=== PATIENT | female | born 1970 | race American Indian/Alaskan Native ===

== ENCOUNTER 2016-09-30 07:42 | Day surgery (SDC) | payer MEDICARE ==
[~2016-09-30 07:42] MED LIST: ANCEF/STERILE WATER 2 GM/20 ML 20 ML IV NR; NACL 0.9% 1000 ML 1,000 ML IV SCH
[2016-09-30 09:09] LABS: Hematocrit 28.7 % (30.3-42.9); Hemoglobin 8.7 gm/dl (10.1-14.3); Mean Corpuscular HGB Conc 30 % (30-34); Mean Corpuscular Volume 74 fl (79-97); Platelet Count 288 K/mm3 (140-440); Red Blood Count 3.88 M/mm3 (3.65-5.03); Red Cell Distribution Width 19.5 % (13.2-15.2)
[2016-09-30] MEDS ORDERED: VERSED IV PRN (09:09)
[2016-09-30 09:15] LABS: Mean Corpuscular Hemoglobin 22 pg (28-32)
--- NOTE | 2016-09-30 09:18 | Anesthesia Consultation ---
Anesthesia Consult and Med Hx Date of service: 09/30/16 - Airway Anesthetic Teeth Evaluation: Poor ROM Head & Neck: Adequate Mental/Hyoid Distance: Adequate Mallampati Class: Class II Intubation Access Assessment: Probably Good - Pulmonary Exam CTA: Yes - Cardiac Exam Cardiac Exam: RRR - Pre-Operative Health Status ASA Pre-Surgery Classification: ASA3 Proposed Anesthetic Plan: General - Pulmonary Hx Smoking: Yes (4 cigs/day) - Cardiovascular System Hx Hypertension: Yes (10YRS) Hx Cardia Arrhythmia: No - Central Nervous System Hx Seizures: Yes (12 yrs ago, not on meds) CVA: No - Endocrine Hx Renal Disease: Yes Hx End Stage Renal Disease: Yes (Dialysis 5 days a week, last dialyzed on Thursday ) Hx Insulin Dependent Diabetes: No Hx Non-Insulin Dependent Diabetes: No Hx Hypothyroidism: (Parathyroid gland removed) - Hematic Hx Anemia: Yes Hx Sickle Cell Disease: No - Other Systems Hx Cancer: No Hx Obesity: No - Additional Comments Anesthesia Medical History Comments: Pt denies of previous anesthesia complications
--- NOTE | 2016-09-30 09:18 | Anesthesia Day of Surgery ---
Anesthesia Day of Surgery - Day of Surgery Patient Examined: Yes Patient H&P Reviewed: Yes Patient is NPO: Yes
[2016-09-30 09:20] LABS: BUN/Creatinine Ratio 4.95; Calcium 7.6 mg/dL (8.4-10.2); Chloride 94.7 mmol/L (98-107); INR 1.21 (0.87-1.13); Potassium 4.5 mmol/L (3.6-5.0)
[2016-09-30] MEDS ORDERED: SUBLIMAZE ONE (09:20)
[2016-09-30] MEDS ORDERED: DIPRIVAN 10 MG/ML IV ONE (09:20)
[2016-09-30] MEDS ORDERED: ePHEDrine SULFATE ONE (09:43)
[2016-09-30 09:53] LABS: Anisocytosis 1+; Basophils % (Manual) 0 % (0.0-1.8); Blastocytes % (Manual) 0 %; Hypochromasia 1+; Polychromasia 1+
[2016-09-30 09:54] LABS: Diff Status Complete; Ovalocytes 1+
[2016-09-30] MEDS ORDERED: ANCEF/STERILE WATER 2 GM/20 ML IV NR (10:00)
[2016-09-30] MEDS ORDERED: PEPCID PO NR (10:00)
[2016-09-30] MEDS ORDERED: NEO SYNEPHRINE/NS Syringe(OR USE) IV ONE (10:04)
[2016-09-30] MEDS ORDERED: NACL 0.9% 1000 ML IV ONE (10:04)
[2016-09-30] MEDS ORDERED: HEPARIN 10,000 UNITS/10 ML IV ONE (10:04)
[2016-09-30] MEDS ORDERED: XYLOCAINE MPF 2% ONE (10:08)
[2016-09-30] MEDS ORDERED: HEPARIN 10,000 UNITS/10 ML ONE (10:26)
[2016-09-30] MEDS ORDERED: NEO SYNEPHRINE ONE (10:52)
[2016-09-30] MEDS ORDERED: NACL 0.9% 100 ML ONE (10:52)
[2016-09-30] MEDS ORDERED: ZOFRAN ONE (11:02)
[2016-09-30] MEDS ORDERED: MARCAINE 0.5% INFILTRATI ONE (11:10)
--- NOTE | 2016-09-30 11:39 | Short Stay Summary ---
Short Stay Documentation Date of service: 09/30/16 Narrative H&P: See H&P - History H&P: obtained from office - Allergies and Medications Current Medications: Allergies No Known Allergies Allergy (Verified 08/23/15 07:25) Home Medications Medication Instructions Recorded Confirmed Last Taken Type Sevelamer Carbonate [Renvela] 800 mg PO TIDWM #90 tablet 07/10/14 09/30/1609/30 Rx Calcitriol [Rocaltrol] 0.5 mcg PO QID 09/29/16 09/30/16 09/28/16 History Vitamin B Comp and C/FA/Zn Cit 0.8 mg PO QDAY 09/29/16 09/30/16 09/28/16 History [Dialyvite 800-Zinc 15 Tab] Warfarin [Coumadin] 5 mg PO Q48HR 09/29/16 09/30/16 09/29/16 23:30 History Warfarin [Coumadin] 7.5 mg PO Q48HR 09/29/16 09/30/16 09/28/16 History buPROPion SR [Wellbutrin SR] 100 mg PO BID 09/29/16 09/30/16 09/30/16 05:50 History cloNIDine [Catapres] 0.1 mg PO BID 09/29/16 09/30/16 09/30/16 05:50 History Active Medications Cefazolin Sodium (Ancef/Sterile Water 2 Gm/20 Ml) 2 gm IV PREOP NR Stop: 09/30/16 23:59 Famotidine (Pepcid) 20 mg PO PREOP NR Stop: 09/30/16 23:59 Last Admin: 09/30/16 09:20 Dose: 20 mg Sodium Chloride (Nacl 0.9% 1000 Ml) 1,000 mls @ 42 mls/hr IV DIRECT HARDEEP Last Admin: 09/30/16 09:15 Dose: 42 mls/hr Midazolam HCl (Versed) 1 mg IV PREOP PRN PRN Reason: Anesthesia Stop: 09/30/16 23:59 Last Admin: 09/30/16 09:20 Dose: 1 mg - Brief post op/procedure progress note Date of procedure: 09/30/16 Pre-op diagnosis: complications of dialysis access Post-op diagnosis: same Procedure: Creation of Left Thigh AV Loop Graft using 4-7 AccuSeal Step Graft Anesthesia: GETA Surgeon: HERI PRITCHARD Estimated blood loss: minimal Pathology: none Condition: stable - Disposition Condition at discharge: Good Disposition: DISCHARGED TO HOME OR SELFCARE Short Stay Discharge Plan Activity: other (no strenuous activity until follow-up in office) Wound: open to air, keep clean and dry, other (okay to wash the wound with soap and water but do not soak in water) Follow up with: HERI PRITCHARD MD [Staff Physician] - 14 Days Prescriptions: HYDROcodone/APAP 7.5-325 [[place] 7.5/325] 1 each PO Q6HR PRN #60 tablet PRN Reason: Pain
[2016-09-30] MEDS: DILAUDID IV PRN ×2 (12:00→12:12)
[2016-09-30 12:45] VITALS: BP 124/71
--- NOTE | 2016-09-30 17:11 | Operative Report ---
Operative Report Operative Report: Date of Procedure: 09/30/2016 Pre-operative Diagnosis: Complications of dialysis access Post-operative Diagnosis: Same Procedure(s): 1. Creation of Left Thigh AV Loop Graft using 4-7 AccuSeal Step Graft Surgeon: Noble Erazo M.D. Director Of Strategic Communications: Ezio Anesthesia: Gen. endotracheal anesthesia EBL: Minimal Counts: Correct Complications: None Condition: Stable Findings: Successful creation of left thigh graft with excellent thrill at the completion of the case Specimen: None Indication: The patient is a 46-year-old female with a history of end-stage renal disease who is currently on hemodialysis through a left arm AV fistula. The patient performs self cannulation at home and currently has central venous stenosis that requires frequent ballooning. Over the last several months she has required treatment 1-2 times per month. It is felt that it is time to abandon this access in her right upper extremity is not an option since the patient is right-handed and cannulates herself. It was felt that she would benefit from creation of a left thigh AV graft. She was given the risks, benefits, and alternative procedures and consented to procedure. Description of Procedure: The patient was brought to the operating room and laid in supine position. After general endotracheal anesthesia was achieved for left leg was prepped and draped in fashion. A longitudinal incision was created in the groin and carried down to the femoral vein with our dissection. The vein was dissected circumferentially and then controlled the vessel. I then dissected out the common femoral artery as well as SFA and the profunda femoris artery was dissected distally to the bifurcation. The common femoral as well as SFA and each branch of the profunda artery controlled with vessels. I then used the Alessandra with tunneler to tunnel the graft with a counter incision in the distal thigh and the 4 mm end of the graft tunneled laterally with a 7 mm tunneled medially. I systemically heparinized the patient and then clamped the arteries and included created end-to-side anastomosis between the 4 mm end of the graft and the profunda artery using 6-0 Prolene in a running fashion. After creating the anastomosis and released all clamps allowing flow into the graft which had excellent arterial inflow. I reclamped the graft and cut the graft to length and beveled the distal end and uses Satinsky clamp to control the vein. I created a venotomy using an 11 blade and Robles scissors and then created an end- to-side anastomosis using a 6-0 Prolene running fashion. After completing the anastomosis and released all clamps allow full the graft with an excellent thrill. Hemostasis within the osullivan achieved with the clot. Once hemostasis was achieved the wounds were anesthetized with Marcaine and then the diagonal was closed in 3 layers using 3-0 Vicryl running fashion the deep layer, 3-0 Vicryl running fashion and deep dermal layers, and a 4 Monocryl in a running fashion subcuticular layer and then dressed with Dermabond.. The distal thigh wound was closed in 2 layers using a 3-0 Vicryl running fashion the dermal layer and a 4-0 Monocryl in running fashion subcuticular and then dressed with Dermabond. The patient tolerated the procedure well. All sponge, needle, and instrument counts were correct. The patient was taken to the recovery area in stable condition.
== END 2016-09-30 13:18 | disposition home or self-care (01) ==
LOC: OR 07:42
PROVIDERS: ATTEND Surgery Vascular Surgery
DX: I12.0 Hypertensive chronic kidney disease with stage 5 chronic kidney disease or end stage renal disease (principal); N18.6 End stage renal disease; Z99.2 Dependence on renal dialysis; H40.9 Unspecified glaucoma; F17.210 Nicotine dependence, cigarettes, uncomplicated; D64.9 Anemia, unspecified; Z86.718 Personal history of other venous thrombosis and embolism; Z98.890 Other specified postprocedural states; T82.898A Other specified complication of vascular prosthetic devices, implants and grafts, initial encounter; Y83.2 Surgical operation with anastomosis, bypass or graft as the cause of abnormal reaction of the patient, or of later complication, without mention of misadventure at the time of the procedure
CPT/HCPCS: 36415; 36825; 80048; 85007; 85025; 85610; J0690; J1644; J2250; J2370; J2405; J2704; J3010; J7030; C1768

== ENCOUNTER 2018-09-17 08:19 | Day surgery (SDC) | payer MEDICARE ==
[~2018-09-17 08:19] MED LIST changes: +ANCEF/STERILE WATER 2 GM/20 ML 2 GM/20 ML SYRINGE IV NR; -ANCEF/STERILE WATER 2 GM/20 ML 20 ML IV NR
[2018-09-17] MEDS ORDERED: NACL 0.9% 500 ML 500 ML ONE (08:34)
[2018-09-17] MEDS ORDERED: PROTAMINE SULFATE ONE (08:34)
[2018-09-17] MEDS ORDERED: HEPARIN 10,000 UNITS/10 ML ONE ×2 (08:34→11:01)
[2018-09-17] MEDS ORDERED: MARCAINE 0.5% INFILTRATI ONE ×2 (08:34→11:00)
--- NOTE | 2018-09-17 09:33 | Anesthesia Day of Surgery ---
Anesthesia Day of Surgery - Day of Surgery Patient Examined: Yes Patient H&P Reviewed: Yes Patient is NPO: Yes Beta Blockers: No Cardiac Clearance: No Pulmonary Clearance: No
--- NOTE | 2018-09-17 09:40 | Anesthesia Consultation ---
Anesthesia Consult and Med Hx Date of service: 09/17/18 - Airway Anesthetic Teeth Evaluation: Good ROM Head & Neck: Adequate Mental/Hyoid Distance: Adequate Mallampati Class: Class III Intubation Access Assessment: Possibly Difficult - Pulmonary Exam CTA: Yes - Cardiac Exam Cardiac Exam: No Murmur - Pre-Operative Health Status ASA Pre-Surgery Classification: ASA4 Proposed Anesthetic Plan: General - Pulmonary Hx Smoking: Yes Hx Asthma: No COPD: No Hx Pneumonia: No Hx Sleep Apnea: No - Cardiovascular System Hx Hypertension: Yes (since 18 yr old) Hx Coronary Artery Disease: No Hx Heart Attack/AMI: No Hx Angina: No Hx Percutaneous Transluminal Coronary Angioplasty (PTCA): No Hx Cardia Arrhythmia: No Hx Pacemaker: No Hx Internal Defibrillator: No Hx Valvular Heart Disease: No Hx Heart Murmur: No Hx Peripheral Vascular Disease: No - Central Nervous System Hx Seizures: Yes (Last sz 12 yrs ago) CVA: No Hx Psychiatric Problems: Yes - Endocrine Hx Renal Disease: Yes Hx End Stage Renal Disease: Yes Hx Insulin Dependent Diabetes: No Hx Non-Insulin Dependent Diabetes: No Hx Hypothyroidism: (Parathyroid gland removed) - Hematic Hx Anemia: Yes Hx Sickle Cell Disease: No - Other Systems Hx Alcohol Use: Yes (Occas) Hx Cancer: No Hx Obesity: No
[2018-09-17] MEDS ORDERED: ZOFRAN ONE (09:47)
[2018-09-17] MEDS ORDERED: SUBLIMAZE ONE (09:47)
[2018-09-17] MEDS ORDERED: DECADRON ONE (09:47)
[2018-09-17] MEDS ORDERED: DIPRIVAN 10 MG/ML IV ONE (09:47)
[2018-09-17 10:02] LABS: Hematocrit 31.9 % (30.3-42.9); Hemoglobin 10.1 gm/dl (10.1-14.3); Mean Corpuscular HGB Conc 32 % (30-34); Mean Corpuscular Volume 69 fl (79-97); Platelet Count 249 K/mm3 (140-440); Red Cell Distribution Width 22.3 % (13.2-15.2)
[2018-09-17 10:11] LABS: Calcium 7.7 mg/dL (8.4-10.2)
[2018-09-17] MEDS ORDERED: XYLOCAINE CARDIAC IV ONE (10:49)
[2018-09-17] MEDS ORDERED: NACL 0.9% IR ONE (11:00)
[2018-09-17] MEDS ORDERED: HEPARIN 10,000 UNITS/10 ML IV ONE ×2 (11:00)
[2018-09-17 11:08] LABS: Anisocytosis 2+; Basophils % (Manual) 0 % (0.0-1.8); Total Cells Counted 100
[2018-09-17 11:09] LABS: Hypochromasia 2+; Ovalocytes 1+; Platelet Estimate Consistent w Auto; Poikilocytosis 1+; Target Cells Few; Tear Drop Cells Rare
--- NOTE | 2018-09-17 14:29 | Operative Report ---
Operative Report Operative Report: Operative note: Date: 09/17/2018 Preoperative diagnosis: Endstage renal disease on hemodialysis. Multiple previous failed accesses. Postoperative diagnosis: Same. Operation: Right arm AV graft creation with ProCol 6mm graft Surgeon: Betsey Ocampo. Asst.: none Anesthesia: Gen. EBL: Less than 50 mL Findings: At the end of procedure there was a palpable thrill at the right arm AV graft and palpable radial pulse. Indications: 48-year-old lady on hemodialysis at home via self cannulation technique. She has had multiple AV fistulas and AV grafts that had failed. Last with left thigh AV graft that recently thrombosed and had undergone unsuccessful declot. She is using right femoral PermCath at this point. It felt reasonable to suggest right arm AV graft creation. The patient was discussed risks, benefits and alternatives of procedure and chose to proceed, signed informed consent. Operative details: Patient was brought to the operating room and placed in supine position with right arm on an arm table. Ultrasound was performed locating brachial artery as well as axillary vein. Those locations were marked on the skin. Right arm was then prepped and draped in sterile fashion. Timeout was performed and all team members in agreement. First incision was created with 15 blade over medial side of elbow crease in vertical fashion and carried down with electrocautery. Brachial artery was dissected and taken distally and proximally on vessel loops. Next, incision was created with 15 blade over medial upper part of arm in the vertical fashion and carried down with electrocautery. With further dissection axillary vein was identified medial to brachial artery, deep was in fibers of biceps. It was taken on vessel loop. 4 millimeter ProCol graft was tunneled with Alessandra Wick tunneler in a curvilinear fashion. At this moment patient was given 3000 units of heparin and allowed to circulate for 3 minutes. Proximal and distal controls were gained. arterial portion was beveled at the arterial side. Arteriotomy was created with 11 blade and extended with Robles scissors. Anastomosis was created with 6-0 Prolene in circumferential fashion. Graft was open,it was let dilate under pressure for 5min. The next step, graft was transected beveling at the planned venous anastomosis. The vein was clamped with Satinsky clamp and DeBakey clamps gaining distal and proximal controls. Venotomy was created with 11 blade and carried with Robles scissors. Circumferential anastomosis was created with 6-0 Prolene and flushed before completion. 2 repair stitches were placed. Both anastomosis were checked for hemostasis. Graft area was palpated and good thrill appreciated. Incisions were irrigated and checked for hemostasis. They were closed in layers with 3-0 Vicryl interrupted dermal and 4-0 Monocryl running subcuticular. Dermabond was applied. Good radial pulse was palpated at the end of procedure as well as graft thrill. All needles and sponge counts were correct. Patient tolerated the procedure well and was transferred to PACU in stable condition.
--- NOTE | 2018-09-17 14:35 | Short Stay Summary ---
Short Stay Documentation Date of service: 09/17/18 - History H&P: obtained from office - Allergies and Medications Current Medications: Allergies No Known Allergies Allergy (Verified 09/10/18 08:28) Home Medications Medication Instructions Recorded Confirmed Last Taken Type Sevelamer Carbonate [Renvela] 800 mg PO TIDWM #90 tablet 07/10/14 09/17/18 09/16/18 19:30 Rx Calcitriol [Rocaltrol] 0.5 mcg PO QID 09/29/16 09/17/18 09/15/18 19:30 History Vit B Complx C/Folic Acid/Zinc 0.8 mg PO QDAY 09/29/16 09/10/18 08/19/18 History [Dialyvite 800-Zinc 15 mg Tab] 0.8mg Warfarin [Coumadin] 7.5 mg PO Q48HR 09/29/16 09/17/18 09/14/18 21:00 History Calcium Acetate 667 mg PO AC 08/20/18 09/17/18 09/16/18 19:30 History amLODIPine [Norvasc] 10 mg PO QDAY #30 tablet 08/24/18 09/17/18 09/17/18 07:00 Rx Warfarin [Coumadin] 10 mg PO Q48H 09/10/18 09/17/18 09/15/18 21:00 History cloNIDine-TTS PATCH [Catapres-Tts 1 patch TRANSDERMA QWEEK 09/10/18 09/17/18 09/17/18 History Patch] Losartan Potassium 100 mg PO DAILY 09/17/18 09/17/18 09/15/18 19:30 History Active Medications Cefazolin Sodium (Ancef/Sterile Water 2 Gm/20 Ml) 2 gm in 20 mls @ 80 mls/hr IV PREOP NR; Protocol Stop: 09/17/18 23:59 Sodium Chloride (Nacl 0.9% 1000 Ml) 1,000 mls @ 42 mls/hr IV DIRECT HARDEEP Last Admin: 09/17/18 09:12 Dose: 42 mls/hr Documented by: - Brief post op/procedure progress note Date of procedure: 09/17/18 Pre-op diagnosis: ESRD, multiple previous failed accesses Post-op diagnosis: same Procedure: creation of right arm AVG with 6mm ProCol Anesthesia: GETA Findings: good thrill and radial pulse at the completion Surgeon: CARLEY GROVER Estimated blood loss: minimal Pathology: none Condition: stable - Disposition Condition at discharge: Good Disposition: DC-01 TO HOME OR SELFCARE Short Stay Discharge Plan Diet: renal Special Instructions: no heavy lifting Follow up with: BLADIMIR LAND MD [Primary Care Provider] - 7 Days CARLEY GROVER DO [Staff Physician] - 14 Days Prescriptions: HYDROcodone/ACETAMINOPHEN [[place] 5-325 Tablet] 1 each PO Q4-6H PRN #20 tablet PRN Reason: Pain , Severe (7-10)
[2018-09-17] MEDS ORDERED: NORCO 5/325 ONE (15:11)
[2018-09-17] MEDS ORDERED: NORCO 5/325 PO PRN (16:00)
[2018-09-17 17:44] VITALS: BP 144/88
== END 2018-09-17 08:20 | disposition home or self-care (01) ==
LOC: OR 08:19
PROVIDERS: ATTEND Surgery Vascular Surgery
DX: I12.0 Hypertensive chronic kidney disease with stage 5 chronic kidney disease or end stage renal disease (principal); N18.6 End stage renal disease; D64.9 Anemia, unspecified; F17.210 Nicotine dependence, cigarettes, uncomplicated; H40.89 Other specified glaucoma; E03.9 Hypothyroidism, unspecified; Z87.898 Personal history of other specified conditions; Z98.891 History of uterine scar from previous surgery; Z98.890 Other specified postprocedural states; Z72.89 Other problems related to lifestyle; Z99.2 Dependence on renal dialysis; Z86.718 Personal history of other venous thrombosis and embolism; Z79.01 Long term (current) use of anticoagulants; Z79.899 Other long term (current) drug therapy
CPT/HCPCS: 36415; 36830; 80048; 85007; 85025; C1768; J0690; J1100; J1644; J2001; J2405; J2704; J2720; J3010; J7030; J7040

== ENCOUNTER 2018-10-04 10:25 | Day surgery (SDC) | payer MEDICARE ==
[2018-10-04 12:27] LABS: INR 1.18 (0.87-1.13)
[2018-10-04 12:28] LABS: Partial Thromboplastin Time 46.2 Sec. (24.2-36.6)
[2018-10-04 13:23] LABS: Calcium 8.2 mg/dL (8.4-10.2)
[2018-10-04] MEDS ORDERED: HEPARIN/NS 5000 UNIT/500ML(CATH LAB) 500 ML IR ONE (13:44)
[2018-10-04] MEDS ORDERED: XYLOCAINE 2% INFILTRATI ONE ×2 (13:45→13:47)
[2018-10-04] MEDS ORDERED: SUBLIMAZE ONE (13:45)
[2018-10-04] MEDS ORDERED: ANCEF/STERILE WATER 2 GM/20 ML 2 GM/20 ML SYRINGE IV ONE (13:45)
[2018-10-04] MEDS ORDERED: HEPARIN 10,000 UNITS/10 ML ONE (13:46)
[2018-10-04] MEDS: VERSED ONE ×2 (13:47→14:00)
[2018-10-04] MEDS ORDERED: D50W (25GM) Syringe IV ONE (14:37)
--- NOTE | 2018-10-04 14:40 | Operative Report ---
Operative Report Operative Report: Operative note: Date: 10/04/2018 Preoperative diagnosis: Malfunctioning right femoral PermCath Postoperative diagnosis: Same. Operation: Right femoral PermCath exchange Surgeon: Betsey Ocampo. Asst.: None Anesthesia: local with moderate sedation. EBL: Minimal Findings: PermCath in good position Indications: Patient prefers hemodialysis at home and recently starting right arm AV graft access had infiltration of her right upper extremity and malfunctioning of right femoral PermCath. Since for now it is advisable to not have any graft access until the swelling and hematoma subsides and permacath was malfunctioning, patient was advised to come for right femoral PermCath exchange. She understood all risks, benefits and alternatives of procedure and signed informed consent. Operative details: Patient was brought to laborer laboratory and positioned in the supine position with right femoral PermCath prepped and draped in sterile fashion. A timeout performed and all team members in the agreement 2 Glidewires were inserted and advanced under fluoroscopic guidance through the venous and arterial ports of PermCath and advanced into proximal inferior vena cava. Exit site was infiltrated with lidocaine around the PermCath. Small incision was made just at the PermCath skin insertion point and dilated with hemostat, dissecting around cuff. Old permacath was removed and new PermCath 55 cm was advanced over 2 Glidewire and inserted through the previous orifice into the proximal IVC. Wires were removed and ports were flushed with saline and checked for good blood flow. Cath ports were locked with heparin 3.0 mL in each.
[2018-10-04] MEDS ORDERED: HumuLIN R IV ONE (14:41)
--- NOTE | 2018-10-04 14:47 | Event Note ---
Date: 10/04/18 Patient came in for right femoral PermCath exchange due to malfunctioning. She performs home dialysis, recently was accessed right AVgraft, but caused infiltration, so she had to go back the PermCath. Patient was set up to have PermCath exchange. During her blood work before procedure she was found to have potassium of 7.1. Nephrology, Dr. Barrera, was contacted and insisted on patient staying in the hospital for hemodialysis. Patient refused and preferred to have dialysis at home, "my machine is set up". She was explained risks of having hyperkalemia including possible . She understood and still wanted to leave. She will sign AMA
--- NOTE | 2018-10-04 15:54 | Short Stay Summary ---
Short Stay Documentation Date of service: 10/04/18 - History Past Medical History: dialysis, hypertension Past Surgical History: Other (multiple previous accesses) Social history: smoking - Allergies and Medications Current Medications: Allergies No Known Allergies Allergy (Verified 09/10/18 08:28) Home Medications Medication Instructions Recorded Confirmed Last Taken Type Sevelamer Carbonate [Renvela] 800 mg PO TIDWM #90 tablet 07/10/14 10/04/18 10/03/18 Rx 1 tab Calcitriol [Rocaltrol] 0.5 mcg PO QID 09/29/16 10/04/18 10/03/18 History 1 tab Warfarin [Coumadin] 7.5 mg PO Q48HR 09/29/16 10/04/18 09/29/18 History 1 tab Calcium Acetate 667 mg PO AC 08/20/18 10/04/18 10/03/18 History 1 tab amLODIPine [Norvasc] 10 mg PO QDAY #30 tablet 08/24/18 10/04/18 10/03/18 Rx 1 tab Warfarin [Coumadin] 10 mg PO Q48H 09/10/18 10/04/18 09/30/18 History 1 tab cloNIDine-TTS PATCH [Catapres-Tts 1 patch TRANSDERMA QWEEK 09/10/18 10/04/18 09/27/18 History Patch] 1 patch Losartan Potassium 100 mg PO DAILY 09/17/18 10/04/18 10/03/18 History 1 tab Epoetin Frank [Epogen] 20,000 unit SQ Q7D 10/04/18 10/04/18 09/30/18 History 20,000 unit Active Medications Cefazolin Sodium (Ancef/Sterile Water 2 Gm/20 Ml) 2 gm in 20 mls @ 80 mls/hr IV PREOP NR; Protocol Stop: 10/04/18 23:59 Sodium Chloride (Nacl 0.9% 1000 Ml) 1,000 mls @ 42 mls/hr IV DIRECT HARDEEP Last Admin: 10/04/18 12:40 Dose: 42 mls/hr Documented by: - Physical exam General appearance: no acute distress Lungs: Normal air movement Breasts: deferred Heart: Regular rate Female Genitourinary: deferred Rectal Exam: deferred - Brief post op/procedure progress note Date of procedure: 10/04/18 Pre-op diagnosis: malfunctional right femoral premcath Post-op diagnosis: same Procedure: permcath exchange Anesthesia: MAC Findings: good positioning Surgeon: CARLEY GROVER Estimated blood loss: minimal Condition: stable - Disposition Condition at discharge: Fair Disposition: DC-01 TO HOME OR SELFCARE Short Stay Discharge Plan Diet: renal Wound: keep clean and dry Additional Instructions: patient was recommended to get dialysis for hyperkalemia with K 7.1. She refused and signed AMA Follow up with: BLADIMIR LAND MD [Primary Care Provider] - 7 Days Forms: AMA Form
[2018-10-04 16:13] VITALS: BP 172/85
== END 2018-10-04 16:10 | disposition home or self-care (01) ==
LOC: CATHLABREC 10:25
PROVIDERS: ATTEND Surgery Vascular Surgery
DX: T82.49XA Other complication of vascular dialysis catheter, initial encounter (principal); I12.0 Hypertensive chronic kidney disease with stage 5 chronic kidney disease or end stage renal disease; N18.6 End stage renal disease; D64.9 Anemia, unspecified; E03.9 Hypothyroidism, unspecified; F17.210 Nicotine dependence, cigarettes, uncomplicated; Z72.89 Other problems related to lifestyle; T82.7XXA Infection and inflammatory reaction due to other cardiac and vascular devices, implants and grafts, initial encounter; Z86.2 Personal history of diseases of the blood and blood-forming organs and certain disorders involving the immune mechanism; Z98.890 Other specified postprocedural states; Z99.2 Dependence on renal dialysis; Z79.899 Other long term (current) drug therapy; Z79.01 Long term (current) use of anticoagulants; Z86.718 Personal history of other venous thrombosis and embolism; Z98.891 History of uterine scar from previous surgery; Y83.8 Other surgical procedures as the cause of abnormal reaction of the patient, or of later complication, without mention of misadventure at the time of the procedure; Y92.89 Other specified places as the place of occurrence of the external cause
CPT/HCPCS: 36415; 36581; 77001; 80048; 85610; 85730; 99156; 99157; C1750; C1769; J0690; J1644; J2250; J3010; J7030; J1815

== ENCOUNTER 2018-11-04 11:11 | Day surgery (SDC) | payer MEDICARE ==
[2018-11-04 12:00] LABS: INR 1.1 (0.87-1.13)
[2018-11-04] MEDS ORDERED: HEPARIN/NS 5000 UNIT/500ML(CATH LAB) 1,000 ML IR ONE (13:17)
[2018-11-04] MEDS ORDERED: ANCEF/STERILE WATER 2 GM/20 ML 2 GM/20 ML SYRINGE IV ONE (13:18)
[2018-11-04] MEDS ORDERED: NACL 0.9% 500 ML 500 ML ONE (13:48)
[2018-11-04] MEDS: VERSED ONE ×6 (14:00→15:13)
[2018-11-04] MEDS: SUBLIMAZE ONE ×6 (14:00→15:13)
[2018-11-04] MEDS: XYLOCAINE 1%/ EPI 1:100,000 INFILTRATI ONE ×4 (14:12→15:04)
[2018-11-04] MEDS: HEPARIN 10,000 UNITS/10 ML ONE ×2 (14:59→15:00)
[2018-11-04] MEDS ORDERED: HEPARIN/NS 5000 UNIT/500ML(CATH LAB) 500 ML IR ONE (15:10)
--- NOTE | 2018-11-04 15:43 | Short Stay Summary ---
Short Stay Documentation Date of service: 11/04/18 Narrative H&P: 48 year old female with ESRD and AVG malfunction and right groin permcath malfunction - History Principal diagnosis: Permcath malfunction and AVG malfunction Past Medical History: dialysis Past Surgical History: Other (permcath, av access creations) - Allergies and Medications Current Medications: Allergies No Known Allergies Allergy (Verified 09/10/18 08:28) Home Medications Medication Instructions Recorded Confirmed Last Taken Type Sevelamer Carbonate [Renvela] 800 mg PO TIDWM #90 tablet 07/10/14 11/04/18 11/03/18 Rx Calcitriol [Rocaltrol] 4 tab PO QDAY 09/29/16 11/04/18 11/03/18 History Warfarin [Coumadin] 7.5 mg PO Q48HR 09/29/16 11/04/18 11/03/18 History Calcium Acetate 667 mg PO AC 08/20/18 11/04/18 11/03/18 History amLODIPine [Norvasc] 10 mg PO QDAY #30 tablet 08/24/18 11/04/18 11/04/18 Rx Warfarin [Coumadin] 10 mg PO Q48H 09/10/18 11/04/18 11/02/18 History cloNIDine-TTS PATCH [Catapres-Tts 1 patch TRANSDERMA QWEEK 09/10/18 11/04/18 10/31/18 History Patch] Losartan Potassium 100 mg PO DAILY 09/17/18 11/04/18 11/04/18 History Epoetin Frank [Epogen] 20,000 unit SQ 2XW 10/04/18 11/04/18 10/27/18 History Active Medications Cefazolin Sodium (Ancef/Sterile Water 2 Gm/20 Ml) 2 gm in 20 mls @ 80 mls/hr IV PREOP NR; Protocol Stop: 11/04/18 23:59 Last Admin: 11/04/18 14:00 Dose: 20 mls Documented by: - Physical exam General appearance: no acute distress Lungs: Normal air movement Gastrointestinal: normal - Brief post op/procedure progress note Date of procedure: 11/04/18 Pre-op diagnosis: ESRD and AVG malfunction, permcath malfunction Post-op diagnosis: same Procedure: Permcath exchange and venography Angioplasty of peripheral dialysis access Anesthesia: local (w/ conscious sedation) Surgeon: SAYRA PACHECO Estimated blood loss: minimal Condition: stable - Hospital course Hospital course: Ready for discharge - Disposition Condition at discharge: Stable Disposition: DC-01 TO HOME OR SELFCARE - Discharge Diagnoses (1) Hemodialysis catheter malfunction Status: Acute (2) AV graft malfunction Status: Acute (3) ESRD (end stage renal disease) on dialysis Status: Chronic Short Stay Discharge Plan Activity: advance as tolerated Weight Bearing Status: Weight Bear as Tolerated Wound: keep clean and dry Follow up with: BLADIMIR LAND MD [Primary Care Provider] - 7 Days Forms: AVG Arteriogram D/CInstruction
[2018-11-04 16:18] VITALS: BP 161/101
--- NOTE | 2018-11-04 18:17 | Operative Report ---
Operative Report Operative Report: EXAM: 1. Digital subtraction angiography through the indwelling right femoral PermCath (55 cm tip to cuff) 2. Ultrasound guided access of the right arm AV graft towards the venous anastomosis. 3. Placement of a sheath towards the venous anastomosis 4. Fistulogram 5. Angioplasty of the venous anastomosis with an 8 mm x 60 mm angioplasty balloon 6. Attempted crossing from the femoral and right arm AV access with inability to cross the innominate vein 7. Selection of the azygos vein with venography, and SVC venography from the femoral approach 8. Fluoroscopic-guided exchange of the right femoral dual lumen tunneled 55 cm tip to cuff hemodialysis catheter for a right femoral dual lumen tunneled 44 cm tip to cuff hemodialysis catheter 9. Ultrasound guided access of the right arm AV fistula towards the arterial anastomosis 10. Selection of the brachial artery in a retrograde fashion with angiography 11. Angioplasty balloon tamponade with 8 mm x 60 mm balloon of the graft at the site of the pseudoaneurysm DATE: 11/04/18 FIRST COAT OPERATOR: SAYRA PACHECO MD INDICATION: PermCath malfunction and AV graft malfunction with pseudoaneurysm of the AV graft MEDICATIONS: Please see nursing report for full details. PROCEDURE: The risks, benefits, and alternatives of the procedure were discussed and wr itten informed consent was obtained. The patient was transported in stable condition to the angiography suite. The right arm AV graft in the right groin catheter were prepped and draped in a sterile fashion. Fluoroscopy was used to visualize with a catheter was positioned. The initial positioning of the femoral catheter was in the azygos vein, which is poor position and explains PermCath malfunction. Over a 0.035 inch wire, the catheter was retracted and digital subtraction angiography was performed demonstrating patency of the SVC. Retraction of the catheter required anesthetizing the dermatology site and then extracting the cuff. With catheter partially extracted, I attempted to pass a 0.035 inch wire into the right subclavian vein but this was not possible. I then decided access the AV graft. The patient's right arm AV graft was assessed by ultrasound and was patent. The patient was prepped and draped in a sterile fashion. Under ultrasound guidance, the right arm AV graft was accessed with a 21-gauge micropuncture needle. The area was anesthetized prior to access. 0.018 inch wire was advanced through the micropuncture needle into the graft and then the needle was exchanged for a 5 [place] transitional dilator. The inner dilator and wire were removed and a 0.035 inch wire was advanced through the venous outflow. The transitional dilator was exchanged for a 6 [place] short sheath. Fistulogram was performed of the venous outflow and central veins. Reflux into the arterial anastomosis was performed. Subtraction angiography demonstrated no occlusion in the right innominate vein and the 99% narrowing of the venous anastomosis. The venous outflow was patent otherwise. Reflux angiography demonstrated a focal pseudoaneurysm arising from the midportion of the graft. 8 mm x 60 mm angioplasty balloon was used from angioplasty of the venous anastomosis. Digital subtraction angiography demonstrated no residual narrowing. After this was performed, a 6 [place] 23 cm, and subsequently 45 cm sheath was exchanged and the central occlusion was attempted to be crossed with a Glidewire drainage, other wires, and multiple catheters including a Navicross catheter. The wire did not pass into the SVC numerous attempts. The femoral catheter was then removed and exchange for a 12 [place] sheath and a 8 [place] by 65 cm sheath was then advanced through the 12 [place] sheath and I attempted to cross from a femoral perspective. Unfortunately, despite attempts from a femoral perspective using multiple wires and catheters I could not cross the right innominate vein narrowing. Digital subtraction was performed of ensuring patency of the SVC. The azygos vein was selected and digital subtraction angiography demonstrated patency of the azygos vein. After numerous attempts, I decided to abandon reconstruction of the central vein. The femoral site was then exchanged for a appropriately sized 44 cm tip to cuff palindromic catheter which was placed at the inferior cavoatrial junction. Dermatology site was then sutured with 2-0 Ethilon. 1000 units per mL of heparin I saline was infused in the catheter space. Sterile dressing and Biopatch applied. Through the graft, ultrasound guidance was used to achieve a retrograde access and this was ultimately upsized to a 6 [place] sheath. Catheter was used to select the brachial artery and a retrograde fashion. Digital subtraction angiography was performed demonstrating patency of the brachial artery proximal distal to the anastomosis without significant narrowing of the anastomosis, or perianastomotic region. The midportion of the graft was patent but there was a peripheral focal pseudoaneurysm arising from the midportion of the graft. The rest of the graft including the venous anastomosis was now patent. 8 mm angioplasty balloon was advanced over the wire used to perform balloon tamponade at the midportion of the graft. This had to be performed twice with five-minute inflations but this resulted in thrombosis of the pseudoaneurysm. At this point, all fistula sheaths, wires, and catheters removed. Each site was closed with 3-0 Vicryl suture. The patient was transported from the angiography suite to the recovery area in stable condition. FINDINGS: Please see procedure note above. IMPRESSION: Complex intervention performed with PermCath exchange and angioplasty for peripheral dialysis access with multiple selections as described above.
== END 2018-11-04 16:30 | disposition home or self-care (01) ==
LOC: CATHLABREC 11:11
PROVIDERS: ATTEND Surgery Vascular Surgery
DX: T82.590A Other mechanical complication of surgically created arteriovenous fistula, initial encounter (principal); I12.0 Hypertensive chronic kidney disease with stage 5 chronic kidney disease or end stage renal disease; N18.6 End stage renal disease; F17.210 Nicotine dependence, cigarettes, uncomplicated; E03.9 Hypothyroidism, unspecified; H40.89 Other specified glaucoma; D64.9 Anemia, unspecified; Z98.891 History of uterine scar from previous surgery; Z99.2 Dependence on renal dialysis; Z98.890 Other specified postprocedural states; Z72.89 Other problems related to lifestyle; Z79.899 Other long term (current) drug therapy; Z79.01 Long term (current) use of anticoagulants; Z86.718 Personal history of other venous thrombosis and embolism; Y83.8 Other surgical procedures as the cause of abnormal reaction of the patient, or of later complication, without mention of misadventure at the time of the procedure; Y92.89 Other specified places as the place of occurrence of the external cause
CPT/HCPCS: 36415; 36581; 36902; 77001; 84132; 85610; 99156; 99157; C1725; C1750; C1751; C1769; C1887; C1894; J0690; J1644; J2250; J3010; J7040; Q9967

== ENCOUNTER 2018-11-30 11:47 | Emergency (ER) | payer MEDICARE ==
[2018-11-30 12:12] VITALS: BP 179/100
--- NOTE | 2018-11-30 12:16 | Emergency Department Report ---
Chief Complaint: Extremity Problem,Nontraumatic Stated Complaint: DIALYSIS TX Time Seen by Provider: 11/30/18 12:10 - HPI History of Present Illness: This is a 48 y.o. female that presents to ED directly from dialysis with swelling and pain to graft on RUE. The patient started having swelling and pain to RUE while receiving dialysis today. The nurse called neurologists Dr. Goldman who told her to report to the ER for a possible new graft. - ROS Review of Systems: RUE pain and swelling to graft - Exam Vital Signs: Vital Signs 11/30/18 12:10 Temperature 97.6 F Pulse Rate 77 Respiratory 20 Rate Blood Pressure 179/100 O2 Sat by Pulse 98 Oximetry MSE screening note: Focused history and physical exam performed. Due to findings the following was ordered: labs Main ED for further evaluation. ED Disposition for MSE Condition: Stable
[2018-11-30 13:06] LABS: Hematocrit 29.9 % (30.3-42.9); Hemoglobin 9.4 gm/dl (10.1-14.3); Mean Corpuscular HGB Conc 31 % (30-34); Mean Corpuscular Volume 67 fl (79-97); Red Blood Count 4.48 M/mm3 (3.65-5.03); Red Cell Distribution Width 20.7 % (13.2-15.2)
[2018-11-30 13:14] LABS: Albumin 4.4 g/dL (3.9-5)
[2018-11-30 14:52] LABS: Anisocytosis 2+; Basophils % (Manual) 0 % (0.0-1.8); Hypochromasia 1+; Platelet Estimate Consistent w Auto; Schistocytes 1+; Total Cells Counted 100
[2018-11-30 14:53] LABS: Platelet Count 306 K/mm3 (140-440)
--- NOTE | 2018-11-30 16:39 | Emergency Department Report ---
ED General Adult HPI - General Chief complaint: Extremity Problem,Nontraumatic Stated complaint: DIALYSIS TX Time Seen by Provider: 11/30/18 12:10 Source: patient, RN notes reviewed, old records reviewed Mode of arrival: Ambulatory Limitations: No Limitations - History of Present Illness Initial comments: This is a 48-year-old female who was not known to this provider previously, follows with Dr. Gonsalves, of nephrology, typically gets Celsius Thursday, , Thursday. The patient was at her outpatient dialysis access today, had her right upper ex tremity cannulated, and shortly thereafter, developed worsening right upper extremity swelling, cramping, and her right upper extremity reportedly turned blue. Patient received about 15 minutes of dialysis. She was sent to the emergency room for additional evaluation. Patient reports chronic right upper extremity swelling. The aforementioned symptoms that developed during the patient's dialysis session are now basically resolved, and the patient feels like she is back to her baseline and her right upper extremity. She denies headache, neck pain, chest pain, abdominal pain, shortness of breath, and reports baseline upper extremity swelling. Currently, in the examination room, she is being seen by vascular surgery. -: Sudden Location: right, upper extremity Radiation: non-radiation Severity scale (0 -10): 0 Consistency: constant Improves with: other (rest, elevation, discontinuation of dialysis) Worsens with: other (worsened with dialysis cannulation) Associated Symptoms: denies other symptoms - Related Data Home Medications Medication Instructions Recorded Confirmed Last Taken Calcitriol [Rocaltrol] 4 tab PO QDAY 09/29/16 11/04/18 11/03/18 Warfarin [Coumadin] 7.5 mg PO Q48HR 09/29/16 11/04/18 11/03/18 Calcium Acetate 667 mg PO AC 08/20/18 11/04/18 11/03/18 Warfarin [Coumadin] 10 mg PO Q48H 09/10/18 11/04/18 11/02/18 cloNIDine-TTS PATCH [Catapres-Tts 1 patch TRANSDERMA QWEEK 09/10/18 11/04/18 10/31/18 Patch] Losartan Potassium 100 mg PO DAILY 09/17/18 11/04/18 11/04/18 Epoetin Frank [Epogen] 20,000 unit SQ 2XW 10/04/18 11/04/1810/27/19 Previous Rx's Medication Instructions Recorded Last Taken Type Sevelamer Carbonate [Renvela] 800 mg PO TIDWM #90 tablet 07/10/14 11/03/18 Rx amLODIPine [Norvasc] 10 mg PO QDAY #30 tablet 08/24/18 11/04/18 Rx Allergies Allergy/AdvReac Type Severity Reaction Status Date / Time No Known Allergies Allergy Verified 09/10/18 08:28 ED Review of Systems ROS: Stated complaint: DIALYSIS TX Other details as noted in HPI Constitutional: denies: fever Eyes: denies: vision change ENT: denies: epistaxis Respiratory: denies: cough Cardiovascular: denies: chest pain Gastrointestinal: denies: abdominal pain Genitourinary: denies: dysuria Musculoskeletal: other (right upper extremity swelling). denies: back pain, myalgia Skin: denies: lesions Neurological: denies: headache, weakness ED Past Medical Hx - Past Medical History Hx Hypertension: Yes (since 18 yr old) Hx Heart Attack/AMI: No Hx Congestive Heart Failure: No Hx Diabetes: No Hx Deep Vein Thrombosis: Yes Hx Renal Disease: Yes Hx Sickle Cell Disease: No Hx Seizures: Yes (Last sz 12 yrs ago) Hx Kidney Stones: No Hx Asthma: No Hx COPD: No Hx Dementia: No Additional medical history: hyperthyroid - Surgical History Hx Coronary Stent: No Hx Pacemaker: No Hx Internal Defibrillator: No Additional Surgical History: tubal ligation, av graft - Social History Smoking Status: Current Some Day Smoker Substance Use Type: Alcohol - Medications Home Medications: Home Medications Medication Instructions Recorded Confirmed Last Taken Type Sevelamer Carbonate [Renvela] 800 mg PO TIDWM #90 tablet 07/10/14 11/04/18 11/03/18 Rx Calcitriol [Rocaltrol] 4 tab PO QDAY 09/29/16 11/04/18 11/03/18 History Warfarin [Coumadin] 7.5 mg PO Q48HR 09/29/16 11/04/18 11/03/18 History Calcium Acetate 667 mg PO AC 08/20/18 11/04/18 11/03/18 History amLODIPine [Norvasc] 10 mg PO QDAY #30 tablet 08/24/18 11/04/18 11/04/18 Rx Warfarin [Coumadin] 10 mg PO Q48H 09/10/18 11/04/18 11/02/18 History cloNIDine-TTS PATCH [Catapres-Tts 1 patch TRANSDERMA QWEEK 09/10/18 11/04/18 History Patch] Losartan Potassium 100 mg PO DAILY 09/17/18 11/04/18 11/04/18 History Epoetin Frank [Epogen] 20,000 unit SQ 2XW 10/04/18 11/04/18 10/27/18 History ED Physical Exam - General Limitations: No Limitations General appearance: alert, in no apparent distress - Head Head exam: Present: atraumatic, normocephalic - Eye Eye exam: Present: normal appearance, EOMI. Absent: nystagmus - ENT ENT exam: Present: normal exam, normal orophraynx, mucous membranes moist, nor mal external ear exam - Neck Neck exam: Present: normal inspection, full ROM. Absent: tenderness, meningismus - Respiratory Respiratory exam: Present: normal lung sounds bilaterally. Absent: respiratory distress - Cardiovascular Cardiovascular Exam: Present: regular rate, normal rhythm, normal heart sounds. Absent: bradycardia, tachycardia, irregular rhythm, systolic murmur, diastolic murmur, rubs, gallop - GI/Abdominal GI/Abdominal exam: Present: soft. Absent: distended, tenderness, guarding, rebound, rigid, pulsatile mass - Extremities Exam Extremities exam: Present: normal inspection, full ROM, other (2+ pulses noted in the bilateral upper, lower extremities. There is reported chronic right upper extremity edema. There is no redness, pus or streaking over the right upper extremity AVG. Sensation intact to the deltoid, median, radial, ulnar distribution. Finger intrinsics intact in the right upper extremity.). Absent: calf tenderness - Back Exam Back exam: Present: normal inspection, full ROM. Absent: tenderness, CVA tenderness (R), paraspinal tenderness, vertebral tenderness - Neurological Exam Neurological exam: Present: alert, oriented X3, CN II-XII intact, other (Extraocular movements intact. Tongue midline. No facial droop. Facial sensation intact to light touch in the V1, V2, V3 distribution bilaterally. 5 and 5 strength in 4 extremities.. Sensation is intact to light touch in 4 ex tremities.). Absent: motor sensory deficit - Psychiatric Psychiatric exam: Present: normal affect, normal mood - Skin Skin exam: Present: warm, dry, intact, normal color. Absent: rash ED Course Vital Signs 11/30/18 11/30/18 12:10 17:35 Temperature 97.6 F Pulse Rate 77 Respiratory 20 16 Rate Blood Pressure 179/100 O2 Sat by Pulse 98 98 Oximetry ED Medical Decision Making - Lab Data Result diagrams: 11/30/18 12:35 11/30/18 12:35 Vital Signs 11/30/18 12:10 Temperature 97.6 F Pulse Rate 77 Respiratory 20 Rate Blood Pressure 179/100 O2 Sat by Pulse 98 Oximetry Lab Results 11/30/18 11/30/18 Range/Units 12:35 12:35 WBC 5.1 (4.5-11.0) K/mm3 RBC 4.48 (3.65-5.03) M/mm3 Hgb 9.4 L (10.1-14.3) gm/dl Hct 29.9 L (30.3-42.9) % MCV 67 L (79-97) fl MCH 21 L (28-32) pg MCHC 31 (30-34) % RDW 20.7 H (13.2-15.2) % Plt Count 306 (140-440) K/mm3 Add Manual Diff Complete Total Counted 100 Seg Neuts % (Manual) 73.0 H (40.0-70.0) % Band Neutrophils % 0 % Lymphocytes % (Manual) 20.0 (13.4-35.0) % Reactive Lymphs % (Man) 0 % Monocytes % (Manual) 6.0 (0.0-7.3) % Eosinophils % (Manual) 1.0 (0.0-4.3) % Basophils % (Manual) 0 (0.0-1.8) % Metamyelocytes % 0 % Myelocytes % 0 % Promyelocytes % 0 % Blast Cells % 0 % Nucleated RBC % Not Reportable Seg Neutrophils # Man 3.7 (1.8-7.7) K/mm3 Band Neutrophils # 0.0 K/mm3 Lymphocytes # (Manual) 1.0 L (1.2-5.4) K/mm3 Abs React Lymphs (Man) 0.0 K/mm3 Monocytes # (Manual) 0.3 (0.0-0.8) K/mm3 Eosinophils # (Manual) 0.1 (0.0-0.4) K/mm3 Basophils # (Manual) 0.0 (0.0-0.1) K/mm3 Metamyelocytes # 0.0 K/mm3 Myelocytes # 0.0 K/mm3 Promyelocytes # 0.0 K/mm3 Blast Cells # 0.0 K/mm3 WBC Morphology Not Reportable Hypersegmented Neuts Not Reportable Hyposegmented Neuts Not Reportable Hypogranular Neuts Not Reportable Smudge Cells Not Reportable Toxic Granulation Not Reportable Toxic Vacuolation Not Reportable Dohle Bodies Not Reportable Pelger-Huet Anomaly Not Reportable Smith Rods Not Reportable Platelet Estimate Consistent w auto Clumped Platelets Not Reportable Plt Clumps, EDTA Not Reportable Large Platelets Not Reportable Giant Platelets Not Reportable Platelet Satelliting Not Reportable Plt Morphology Comment Not Reportable RBC Morphology Not Reportable Dimorphic RBCs Not Reportable Polychromasia Not Reportable Hypochromasia 1+ Poikilocytosis Not Reportable Anisocytosis 2+ Microcytosis 1+ Macrocytosis Not Reportable Spherocytes Not Reportable Pappenheimer Bodies Not Reportable Sickle Cells Not Reportable Target Cells Not Reportable Tear Drop Cells Not Reportable Ovalocytes Not Reportable Helmet Cells Not Reportable Rubio-Greybull Bodies Not Reportable [place] Rings Not Reportable [place] Cells Not Reportable Bite Cells Not Reportable Crenated Cell Not Reportable Elliptocytes Not Reportable Acanthocytes (Spur) Not Reportable Rouleaux Not Reportable Hemoglobin C Crystals Not Reportable Schistocytes 1+ Malaria parasites Not Reportable Arjun Bodies Not Reportable Hem Pathologist Commnt No Sodium 136 L (137-145) mmol/L Potassium 4.8 (3.6-5.0) mmol/L Chloride 90.4 L (98-107) mmol/L Carbon Dioxide 22 (22-30) mmol/L Anion Gap 28 mmol/L BUN 76 H (7-17) mg/dL Creatinine 13.8 H (0.7-1.2) mg/dL Estimated GFR 3 ml/min BUN/Creatinine Ratio 6 % Glucose 90 (65-100) mg/dL Calcium 6.0 L (8.4-10.2) mg/dL Total Bilirubin 0.20 (0.1-1.2) mg/dL AST 16 (5-40) units/L ALT 6 L (7-56) units/L Alkaline Phosphatase 101 (35-129) units/L Total Protein 7.9 (6.3-8.2) g/dL Albumin 4.4 (3.9-5) g/dL Albumin/Globulin Ratio 1.3 % - Radiology Data Radiology results: pending, image reviewed interpreted by me: Preliminary interpretation of right upper extremity hemodialysis study suggests upper extremity edema, and stenosis. No evidence of DVT noted. - Medical Decision Making Differential diagnosis, including but not limited to: AV graft stenosis, dependent upper extremity edema, azotemia, uremia, hyperkalemia Assessment and plan: 48-year-old female with improving, acute on chronic right upper extremity swelling, in the context of recent dialysis cannulation. Patient does not have chest pain or shortness of breath, she is saturating well on room air, does not have crackles or rales. Does not have significant lower extremity edema. Potassium reviewed and appreciated, not significantly elevated, although creatinine and blood urea nitrogen are somewhat elevated. Patient seen and evaluated with vascular surgery, who recommended the right upper extremity dialysis duplex study. Vascular surgery has arranged for the patient to have a right groin either permacath or Vas-Cath placed tomorrow. Contacted the patient's curing pickling packer on-call, Dr. Erickson, covering for Dr. Gonsalves, who recommended admission. The patient reports that she does not want to stay in the hospital, and she reports that she is reliable to follow-up tomorrow. The patient reports that she is going to sign out AGAINST MEDICAL ADVICE. The risks of leaving, including disability, debility, paralysis, permanent loss of quality of life, were discussed with the patient, who verbalized understanding. The patient is alert and oriented 3, clinically sober, and exhibits decision-making capacity. The patient is free from distracting injury. She reports that she will follow up tomorrow as planned with the vascular surgery team to have right lower extremity dialysis access placed. She reports that she is reliable to follow-up tomorrow, and reports that she will follow-up/return to the emergency room right away if and when she changes her mind. Critical care attestation.: If time is entered above; I have spent that time in minutes in the direct care of this critically ill patient, excluding procedure time. ED Disposition Clinical Impression: AV graft malfunction, ESRD (end stage renal disease) on dialysis Disposition: [id number] LEFT AGAINST MED ADVICE Is pt being admited?: No Does the pt Need Aspirin: No Condition: Undetermined Additional Instructions: As we discussed, you have left the hospital/emergency room AGAINST MEDICAL ADVICE. By leaving, you risked , disability, paralysis, permanent loss of quality of life. The ER is open 24 hours a day, 7 days a week. It never closes. Please return to the emergency room right away if and when you change your mind. If you decide not to return to the emergency room, please follow-up with the listed physician referrals as soon as possible. Do not eat anything after midnight. Please contact vascular surgery first thing tomorrow morning, to confirm outpatient appointment for right lower extremity dialysis access catheter placement. Please return to the emergency room right away if and when you change your mind. Referrals: KRYSTYNA ARRIAGA MD [Staff Physician] - 3-5 Days WAI GONSALVES MD [Staff Physician] - 3-5 Days
--- NOTE | 2018-11-30 17:56 | Consultation ---
History of Present Illness - Reason for Consult Consult date: 11/30/18 Malfunctioning AVG RUE Requesting physician: DAVID FINK - History of Present Illness This pt is a 48 yo AAF with ESRD on HD. She is s/p a creation RUE upper arm AVG (Procol 6mm) 09/17/18. She recently had a femoral PC removed and the AVG used successfully x1wk. She initially used 17gauge needles without issue. Today they increased to 16 gauge needles and within 15min of initation of HD, her arm swelling increased and arm and hand "turned blue". HD stopped and the pt was sent to [facility] ER. A vascular surgery consult has been requested to further evaluate. Past History Past Medical History: dialysis, ESRD, hypertension Past Surgical History: Other (HD access LUE x2, LLE x1, RUE x1 , Multiple fistulagrams with intervention, partial parathyroidectomy) Social history: denies: smoking Family history: cancer, hypertension Medications and Allergies Allergies Allergy/AdvReac Type Severity Reaction Status Date / Time No Known Allergies Allergy Verified 09/10/18 08:28 Home Medications Medication Instructions Recorded Confirmed Last Taken Type Sevelamer Carbonate [Renvela] 800 mg PO TIDWM #90 tablet 07/10/14 11/04/18 11/03/18 Rx Calcitriol [Rocaltrol] 4 tab PO QDAY 09/29/16 11/04/18 11/03/18 History Warfarin [Coumadin] 7.5 mg PO Q48HR 09/29/16 11/04/18 11/03/18 History Calcium Acetate 667 mg PO AC 08/20/18 11/04/18 11/03/18 History amLODIPine [Norvasc] 10 mg PO QDAY #30 tablet 08/24/18 11/04/18 11/04/18 Rx Warfarin [Coumadin] 10 mg PO Q48H 09/10/18 11/04/18 11/02/18 History cloNIDine-TTS PATCH [Catapres-Tts 1 patch TRANSDERMA QWEEK 09/10/18 11/04/18 10/31/18 History Patch] Losartan Potassium 100 mg PO DAILY 09/17/18 11/04/18 11/04/18 History Epoetin Frank [Epogen] 20,000 unit SQ 2XW 10/04/18 11/04/18 10/27/18 History Review of Systems All systems: negative Exam - Constitutional Vitals: Temp Pulse Resp BP Pulse Ox 97.6 F 77 20 179/100 98 11/30/18 12:10 11/30/18 12:10 11/30/18 12:10 11/30/18 12:10 11/30/18 12:10 General appearance: Present: no acute distress - EENT Eyes: Present: EOM intact ENT: hearing intact - Neck Neck: Present: supple - Respiratory Respiratory effort: normal - Extremities Extremities: no ischemia, pulses intact (easily palpable radial pulse, and hand is warm), abnormal (easily palpable thrill RUE avg, mild-mod swelling of the upper arm and forearm (with pitting)) - Psychiatric Psychiatric: appropriate mood/affect, intact judgment & insight, cooperative - Neurologic Neurologic: no focal deficits Results - Labs CBC & Chem 7: 11/30/18 12:35 11/30/18 12:35 Labs: Abnormal lab results 11/30/18 11/30/18 Range/Units 12:35 12:35 Hgb 9.4 L (10.1-14.3) gm/dl Hct 29.9 L (30.3-42.9) % MCV 67 L (79-97) fl MCH 21 L (28-32) pg RDW 20.7 H (13.2-15.2) % Seg Neuts % (Manual) 73.0 H (40.0-70.0) % Lymphocytes # (Manual) 1.0 L (1.2-5.4) K/mm3 Sodium 136 L (137-145) mmol/L Chloride 90.4 L (98-107) mmol/L BUN 76 H (7-17) mg/dL Creatinine 13.8 H (0.7-1.2) mg/dL Calcium 6.0 L (8.4-10.2) mg/dL ALT 6 L (7-56) units/L Assessment and Plan This pt presents with acute exacerabation of pre-existing RUE swelling following initiation of HD today using larger access needles (16. Possible infiltration of the access. U/s ordered. She will need a femoral permacath placed to allow the AVG to rest prior to re- attempting to access the graft. Discussed with the ER MD. He spoke to nephrology who recommended admission. The pt refused, and . The pt was told to contact our office 1st thing in the am to schedule PC placement in the geochemical laboratory technician at [facility] tomorrow afternoon. She understands to be NPO after mn (except meds). - Patient Problems (1) AV graft malfunction Current Visit: No Status: Acute (2) ESRD (end stage renal disease) on dialysis Current Visit: No Status: Chronic (3) Hypertension Current Visit: No Status: Chronic Qualifiers: Hypertension type: essential hypertension Qualified Code(s): I10 - Essential (primary) hypertension
--- NOTE | 2018-11-30 21:38 | Vascular Lab Report ---
PROCEDURE: VL HEMODIALYSIS ACCESS TECHNIQUE: Right arm color Doppler vascular ultrasound. HISTORY: RIGHT ARM PAIN SWELLING AV GRAft COMPARISONS: None FINDINGS: The radial artery and brachial artery are patent and demonstrate antegrade blood flow. Peak systolic velocity in the radial artery is 25 cm/s. Peak systolic velocity in the brachial artery is 300 cm/s. The graft and venous outflow are patent. Peak systolic velocity at the arterial anastomosis is 695 cm /s. Velocity in the proximal graft is 386 cm/s. Velocity in the mid graft is 191 cm/s. Velocity in th e distal graft is 201 cm/s. Velocity at the venous anastomosis is 294 cm/s. Velocity at the axillary vein is 116 cm/s. Velocity in the subclavian vein is 74 cm/s. Elevated velocities are noted at the arterial anastomosis suggesting possible stenosis. No thrombosis is identified. IMPRESSION: Elevated velocities are noted at the arterial anastomosis suggesting possible stenosis. No thrombosis is identified.. This document is electronically signed by Jasiel Duval MD., November 30 2018 09:36:12 PM ET
== END 2018-11-30 18:27 | disposition left against medical advice (07) ==
LOC: ED 11:47
DX: T82.898A Other specified complication of vascular prosthetic devices, implants and grafts, initial encounter (principal); I12.0 Hypertensive chronic kidney disease with stage 5 chronic kidney disease or end stage renal disease; N18.6 End stage renal disease; Z99.2 Dependence on renal dialysis; F17.200 Nicotine dependence, unspecified, uncomplicated; Y84.8 Other medical procedures as the cause of abnormal reaction of the patient, or of later complication, without mention of misadventure at the time of the procedure
CPT/HCPCS: 36415; 80053; 85007; 85025; 93990

== ENCOUNTER 2018-12-01 13:23 | Inpatient (IN) | payer MEDICARE ==
[2018-12-01] MEDS ORDERED: NACL 0.9% 500 ML 500 ML IV SCH (14:00)
[2018-12-01 14:19] LABS: INR 4.43 (0.87-1.13)
[2018-12-01 14:23] LABS: Partial Thromboplastin Time 95.7 Sec. (24.2-36.6)
[2018-12-01 15:01] LABS: INR 4.39 (0.87-1.13)
[2018-12-01 15:12] LABS: Partial Thromboplastin Time 92.1 Sec. (24.2-36.6)
--- NOTE | 2018-12-01 16:03 | Emergency Department Report ---
ED General Adult HPI - General Chief complaint: Recheck/Abnormal Lab/Rx Time Seen by Provider: 12/01/18 15:59 Source: patient, RN notes reviewed, old records reviewed Mode of arrival: Wheelchair Limitations: No Limitations - History of Present Illness Initial comments: This is a 48-year-old female whom I have evaluated the past. The patient has a past medical history of end-stage renal disease, on dialysis, and also takes Coumadin chronically for multiple stenoses, and history of multiple clots. Please see my history and physical from yesterday for the full details of the patient's past medical history. Patient was at the outpatient vascular lab today, for planned permacath placement, and was found to have a supratherapeutic INR of greater than 4. Apparently, in the logging rafter laborer, patient either had an episode of coughing up blood, or bleeding gums. Patient denies headache, neck pain, chest pain, abdominal pain, shortness of breath. She has acute on chronic right upper extremity arm swelling, which is improving. She was sent to the emergency room by the vascular surgery team for evaluation of supratherapeutic INR. She had a potassium drawn which was 4.8. -: Gradual, Sudden Location: mouth, right, upper extremity Severity scale (0 -10): 0 Improves with: none Worsens with: none - Related Data Home Medications Medication Instructions Recorded Confirmed Last Taken Calcitriol [Rocaltrol] 4 tab PO QDAY 09/29/16 12/01/18 12/01/18 05:30 Warfarin [Coumadin] 7.5 mg PO Q48HR 09/29/16 12/01/18 11/29/18 7.5mg Calcium Acetate 667 mg PO AC 08/20/18 12/01/18 12/01/18 05:30 Warfarin [Coumadin] 10 mg PO Q48H 09/10/18 12/01/18 11/26/18 cloNIDine-TTS PATCH [Catapres-Tts 1 patch TRANSDERMA QWEEK 09/10/18 12/01/18 11/22/18 Patch] 0.3mg Losartan Potassium 100 mg PO DAILY 09/17/18 12/01/18 11/29/18 100mg Epoetin Frank [Epogen] 14,000 unit SQ 3XW 10/04/18 12/01/18 11/29/18 23495 Previous Rx's Medication Instructions Recorded Last Taken Type Sevelamer Carbonate [Renvela] 800 mg PO TIDWM #90 tablet 07/10/14 12/01/18 05:30 Rx amLODIPine [Norvasc] 10 mg PO QDAY #30 tablet 08/24/18 11/29/18 Rx 10mg Allergies Allergy/AdvReac Type Severity Reaction Status Date / Time No Known Allergies Allergy Verified 09/10/18 08:28 ED Review of Systems ROS: Stated complaint: Other details as noted in HPI Constitutional: denies: fever, malaise Eyes: denies: vision change ENT: denies: epistaxis Respiratory: cough Cardiovascular: denies: chest pain Gastrointestinal: denies: abdominal pain, hematemesis, melena, hematochezia Genitourinary: denies: dysuria Musculoskeletal: arthralgia, myalgia Skin: denies: lesions Neurological: denies: weakness Psychiatric: anxiety ED Past Medical Hx - Past Medical History Previous Medical History?: Yes Hx Hypertension: Yes (since 18 yr old) Hx Heart Attack/AMI: No Hx Congestive Heart Failure: No Hx Diabetes: No Hx Deep Vein Thrombosis: Yes Hx Renal Disease: Yes Hx Sickle Cell Disease: No Hx Seizures: Yes (Last sz 12 yrs ago) Hx Kidney Stones: No Hx Asthma: No Hx COPD: No Hx Dementia: No Additional medical history: hyperthyroid - Surgical History Past Surgical History?: Yes Hx Coronary Stent: No Hx Pacemaker: No Hx Internal Defibrillator: No Additional Surgical History: tubal ligation, av graft - Social History Smoking Status: Never Smoker Substance Use Type: None - Medications Home Medications: Home Medications Medication Instructions Recorded Confirmed Last Taken Type Sevelamer Carbonate [Renvela] 800 mg PO TIDWM #90 tablet 07/10/14 12/01/18 12/01/18 05:30 Rx Calcitriol [Rocaltrol] 4 tab PO QDAY 09/29/16 12/01/18 12/01/18 05:30 History Warfarin [Coumadin] 7.5 mg PO Q48HR 09/29/16 12/01/18 11/29/18 History 7.5mg Calcium Acetate 667 mg PO AC 08/20/18 12/01/18 12/01/18 05:30 History amLODIPine [Norvasc] 10 mg PO QDAY #30 tablet 08/24/18 12/01/18 11/29/18 Rx 10mg Warfarin [Coumadin] 10 mg PO Q48H 09/10/18 12/01/18 11/26/18 History cloNIDine-TTS PATCH [Catapres-Tts 1 patch TRANSDERMA QWEEK 09/10/18 12/01/18 11/22/18 History Patch] 0.3mg Losartan Potassium 100 mg PO DAILY 09/17/18 12/01/18 11/29/18 History 100mg Epoetin Frank [Epogen] 14,000 unit SQ 3XW 10/04/18 12/01/18 11/29/18 History 60829 ED Physical Exam - General Limitations: No Limitations General appearance: alert, in no apparent distress - Head Head exam: Present: atraumatic, normocephalic - Eye Eye exam: Present: normal appearance, EOMI. Absent: nystagmus - ENT ENT exam: Present: normal exam, normal orophraynx, mucous membranes moist, normal external ear exam, other (patient speaking in full sentences. There is no stridor. There is no trismus. There is no obvious oral bleeding noted.) - Neck Neck exam: Present: normal inspection, full ROM. Absent: tenderness, meningismus - Respiratory Respiratory exam: Present: decreased breath sounds. Absent: respiratory distress - Cardiovascular Cardiovascular Exam: Present: regular rate, normal rhythm, normal heart sounds. Absent: bradycardia, tachycardia, irregular rhythm, systolic murmur, diastolic murmur, rubs, gallop - GI/Abdominal GI/Abdominal exam: Present: soft. Absent: distended, tenderness, guarding, rebound, rigid, pulsatile mass - Extremities Exam Extremities exam: Present: normal inspection (there is diffuse right upper extremity swelling which appears to be unchanged from yesterday. There is an AV graft noted. 2+ pulses noted in the bilateral upper, lower extremities), full ROM, pedal edema (diffuse right upper extremity edema is noted.). Absent: calf tenderness - Back Exam Back exam: Present: normal inspection, full ROM. Absent: tenderness, CVA tenderness (R), paraspinal tenderness, vertebral tenderness - Neurological Exam Neurological exam: Present: alert, oriented X3, other (Extraocular movements int act. Tongue midline. No facial droop. Facial sensation intact to light touch in the V1, V2, V3 distribution bilaterally. 5 and 5 strength in 4 extremities.. Sensation is intact to light touch in 4 extremities.). Absent: motor sensory deficit - Psychiatric Psychiatric exam: Present: anxious - Skin Skin exam: Present: warm, dry, intact, normal color. Absent: rash ED Course Vital Signs 12/01/18 12/01/18 12/01/18 14:29 14:35 15:58 Temperature 98.6 F 98.2 F Pulse Rate 75 76 Respiratory 18 18 Rate Respiratory 18 Rate [Right Arm ] Blood Pressure 181/110 Blood Pressure 143/86 [Left] O2 Sat by Pulse 97 96 Oximetry 12/01/18 12/01/18 12/01/18 16:33 16:35 16:45 Temperature Pulse Rate 81 167 H Respiratory 21 16 21 Rate Respiratory Rate [Right Arm ] Blood Pressure Blood Pressure 160/98 [Left] O2 Sat by Pulse 98 99 100 Oximetry 12/01/18 12/01/18 12/01/18 17:01 17:15 17:30 Temperature Pulse Rate 84 84 84 Respiratory 22 16 22 Rate Respiratory Rate [Right Arm ] Blood Pressure 167/93 164/99 149/93 Blood Pressure [Left] O2 Sat by Pulse 100 90 Oximetry 12/01/18 12/01/18 12/01/18 17:45 18:01 18:15 Temperature Pulse Rate 84 89 82 Respiratory 25 H 22 14 Rate Respiratory Rate [Right Arm ] Blood Pressure 152/103 190/104 190/104 Blood Pressure [Left] O2 Sat by Pulse 79 L 97 100 Oximetry 12/01/18 12/01/18 18:30 18:41 Temperature Pulse Rate 80 92 H Respiratory 19 14 Rate Respiratory Rate [Right Arm ] Blood Pressure 147/92 147/92 Blood Pressure [Left] O2 Sat by Pulse 100 92 Oximetry - Reevaluation(s) Reevaluation #1: 12/01/18 17:04 Differential diagnosis, including but not limited to: Uremia, azotemia, acute on chronic right upper extremity edema, supratherapeutic INR Assessment and plan: 48-year-old female who was sent to the emergency room by vascular surgery for supratherapeutic INR. She may have had an issue of coughing up blood versus bleeding gums. This is now resolved. She denies hematemesis, bright red blood per rectum. X-ray of the chest suggest pulmonary vascular congestion. Discussed with vascular surgery Stephanie Espinosa and renal stone driller helper, Dr Macario, who will follow in consultation respectively. Patient will be given hydralazine for hypertension, and oral vitamin K. Hospital physician, Dr. Cardenas has accepted the patient to the medical service f or correction of supratherapeutic INR, medical maintenance of elevated blood pressure, and further inpatient management. This plan of care is discussed with the patient, who verbalizes understanding, and indicates she is amenable to hospitalization. ED Medical Decision Making - Lab Data Result diagrams: 12/01/18 17:13 12/01/18 17:13 Vital Signs 12/01/18 12/01/18 12/01/18 14:29 14:35 15:58 Temperature 98.6 F 98.2 F Pulse Rate 75 76 Respiratory 18 18 Rate Respiratory 18 Rate [Right Arm ] Blood Pressure 181/110 Blood Pressure 143/86 [Left] O2 Sat by Pulse 97 96 Oximetry 12/01/18 12/01/18 16:33 16:35 Temperature Pulse Rate 81 Respiratory 21 16 Rate Respiratory Rate [Right Arm ] Blood Pressure Blood Pressure 160/98 [Left] O2 Sat by Pulse 98 99 Oximetry Lab Results 12/01/18 12/01/18 12/01/18 Range/Units 13:53 14:00 14:45 PT 45.4 H 45.1 H (12.2-14.9) Sec. INR 4.43 H 4.39 H (0.87-1.13) APTT 95.7 H* 92.1 H* (24.2-36.6) Sec. Potassium 4.8 (3.6-5.0) mmol/L Laboratory studies from yesterday are reviewed and appreciated - Radiology Data Radiology results: report reviewed, image reviewed interpreted by me: X-ray of the chest shows pulmonary vascular congestion, enlarged cardiac silhouette Referring Physician: DAVID FINK Patient Name: HAMMAD GREENWOOD Date of : 1970 Sex: Female Report Date: 2018-11-30 Report Status: Finalized [facility] [address] [place] [address] Vascular Lab Report Signed Patient: HAMMAD GREENWOOD MR#: [id number] : 1970 Acct:[id number] Age/Sex: 48 / F ADM Date: 11/30/18 Loc: ED Attending Dr: Ordering Physician: DAVID FINK MD Date of Service: 11/30/18 Procedure(s): VL hemodialysis access Accession Number(s): [id number] cc: DAVID FINK MD PROCEDURE: VL HEMODIALYSIS ACCESS TECHNIQUE: Right arm color Doppler vascular ultrasound. HISTORY: RIGHT ARM PAIN SWELLING AV GRAft COMPARISONS: None FINDINGS: The radial artery and brachial artery are patent and demonstrate antegrade blood flow. Peak systolic velocity in the radial artery is 25 cm/s. Peak systolic velocity in the brachial artery is 300 cm/s. The graft and venous outflow are patent. Peak systolic velocity at the arterial anastomosis is 695 cm/s. Velocity in the proximal graft is 386 cm/s. Velocity in the mid graft is 191 cm/s. Velocity in the distal graft is 201 cm/s. Velocity at the venous anastomosis is 294 cm/s. Velocity at the axillary vein is 116 cm/s. Velocity in the subclavian vein is 74 cm/s. Elevated velocities are noted at the arterial anastomosis suggesting possible stenosis. No thrombosis is identified. IMPRESSION: Elevated velocities are noted at the arterial anastomosis suggesting possible stenosis. No thrombosis is identified.. This document is electronically signed by Jasiel Dsouza MD., November 30 2018 09:36:12 PM ET Transcribed By: CO Dictated By: JASIEL DSOUZA MD Electronically Authenticated By: JASIEL DSOUZA MD Signed Date/Time: 11/30/182137 DD/ 1759 TD/TT: 11/30/18 1800 Critical care attestation.: If time is entered above; I have spent that time in minutes in the direct care of this critically ill patient, excluding procedure time. ED Disposition Clinical Impression: ESRD (end stage renal disease) on dialysis, Supratherapeutic INR, Elevated blood pressure reading Pulmonary edema Qualifiers: Chronicity: acute Qualified Code(s): J81.0 - Acute pulmonary edema AV graft malfunction Qualifiers: Encounter type: initial encounter Qualified Code(s): T82.590A - Other mechanical complication of surgically created arteriovenous fistula, initial encounter Disposition: OP ADMIT IP TO THIS HOSP Is pt being admited?: Yes Does the pt Need Aspirin: No Condition: Good
[2018-12-01] MEDS ORDERED: VITAMIN K *ORAL LIQUID PO ONE (16:04)
[2018-12-01] MEDS ORDERED: APRESOLINE IV ONE (16:04)
--- NOTE | 2018-12-01 17:02 | History and Physical Report ---
History of Present Illness Chief complaint: My graft dont work History of present illness: 48 YO Female with HTN, ESRD on HD, Recurrent dialysis access clotting on therapeutic anticoagulation presents for elective permacath placement. Pt found to have hemoptysis as well as a supratherapeutic INR. Pt sent to ED for further evaluation. Pt seen and evaluated in ED and found to have ESRD, Supratherapeutic INR, as well as mucosal bleeding which has resolved upon evaluation in ED. Pt acknowledges last dialysis was 5 days ago. Pt denies fever, chills, CP, Palpitations, NVD, Trauma, Productive cough, or recent ill contacts. Pt admitted to medical floor. Nephrology consulted for dialysis, Vascular surgery consulted for dialysis access. Pt treated with vitamin K in ED. Pt last admitted 08/20/18. All listed medication reconciled at time of admission. Past History Past Medical History: ESRD, hypertension Past Surgical History: Other (Tubal ligation, AV Graft) Social history: single. denies: smoking, alcohol abuse, prescription drug abuse Family history: diabetes, hypertension Medications and Allergies Allergies Allergy/AdvReac Type Severity Reaction Status Date / Time No Known Allergies Allergy Verified 09/10/18 08:28 Home Medications Medication Instructions Recorded Confirmed Last Taken Type Sevelamer Carbonate [Renvela] 800 mg PO TIDWM #90 tablet 07/10/14 12/01/18 12/01/18 05:30 Rx Calcitriol [Rocaltrol] 4 tab PO QDAY 09/29/16 12/01/18 12/01/18 05:30 History Warfarin [Coumadin] 7.5 mg PO Q48HR 09/29/16 12/01/18 11/29/18 History 7.5mg Calcium Acetate 667 mg PO AC 08/20/18 12/01/18 12/01/18 05:30 History amLODIPine [Norvasc] 10 mg PO QDAY #30 tablet 08/24/18 12/01/18 11/29/18 Rx 10mg Warfarin [Coumadin] 10 mg PO Q48H 09/10/18 12/01/18 11/26/18 History cloNIDine-TTS PATCH [Catapres-Tts 1 patch TRANSDERMA QWEEK 09/10/18 12/01/18 11/22/18 History Patch] 0.3mg Losartan Potassium 100 mg PO DAILY 0112/01/18 11/29/18 History 100mg Epoetin Frank [Epogen] 14,000 unit SQ 3XW 10/04/18 12/01/18 11/29/18 History 25221 Active Meds: Active Medications Sodium Chloride (Nacl 0.9% 500 Ml) 500 mls @ 50 mls/hr IV DIRECT HARDEEP Review of Systems Constitutional: no weight loss, no weight gain, no fever, no chills Ears, nose, mouth and throat: no ear pain, no ear discharge, no tinnitis, no decreased hearing, no nose pain Breasts: no change in shape, no swelling, no mass Cardiovascular: no chest pain, no orthopnea, no palpitations, no rapid/irregular heart beat, no edema Respiratory: no cough, no cough with sputum, no excessive sputum, no hemoptysis Gastrointestinal: no nausea, no vomiting, no diarrhea, no constipation, no change in bowel habits Genitourinary Female: no pelvic pain, no flank pain, no menorrhagia, no dysuria, no urinary frequency, no urgency Rectal: no pain Musculoskeletal: no neck stiffness, no neck pain, no shooting arm pain, no low back pain Integumentary: no rash, no pruritis, no redness, no sores Neurological: no head injury, no transient paralysis, no paralysis Psychiatric: no anxiety, no memory loss, no change in sleep habits, no insomnia, no change in appetite, no change in libido Endocrine: no cold intolerance, no polydipsia, no nocturia, no weight change Hematologic/Lymphatic: no easy bleeding, no lymphadenopathy, no lymphedema Allergic/Immunologic: no allergic rhinitis Exam - Constitutional Vitals: Temp Pulse Resp BP Pulse Ox 98.2 F 81 16 160/98 99 12/01/18 15:58 12/01/18 16:35 12/01/18 16:35 12/01/18 16:35 12/01/18 16:35 General appearance: Present: mild distress - EENT Eyes: Present: PERRL ENT: hearing intact, clear oral mucosa - Neck Neck: Present: supple, normal ROM - Respiratory Respiratory effort: normal Respiratory: bilateral: CTA - Cardiovascular Heart Sounds: Present: S1 & S2. Absent: rub, click - Extremities Extremities: pulses symmetrical, No edema Peripheral Pulses: within normal limits - Abdominal General gastrointestinal: Present: soft, non-tender, non-distended, normal bowel sounds Female genitourinary: Present: normal - Integumentary Integumentary: Present: clear, warm, dry - Musculoskeletal Musculoskeletal: gait normal, strength equal bilaterally - Psychiatric Psychiatric: appropriate mood/affect, intact judgment & insight - Neurologic Neurologic: CNII-XII intact, moves all extremities Results - Labs CBC & Chem 7: 12/01/18 17:13 12/01/18 17:13 Labs: Abnormal lab results 12/01/18 12/01/18 Range/Units 13:53 14:45 PT 45.4 H 45.1 H (12.2-14.9) Sec. INR 4.43 H 4.39 H (0.87-1.13) APTT 95.7 H* 92.1 H* (24.2-36.6) Sec. Assessment and Plan - Patient Problems (1) ESRD (end stage renal disease) on dialysis Current Visit: Yes Status: Acute Plan to address problem: Nephrology consulted for dialysis, monitor uop q shift, strict I/O, Renal diet, avoid nephrotoxic agents, bmp, (2) AV graft malfunction Current Visit: Yes Status: Acute Qualifiers: Encounter type: initial encounter Qualified Code(s): T82.590A - Other mechanical complication of surgically created arteriovenous fistula, initial encounter Plan to address problem: Vascular surgery consulted for permacath placement. (3) Supratherapeutic INR Current Visit: Yes Status: Acute Plan to address problem: Hold coumadin, serial INR, Vitamin K. (4) History of DVT (deep vein thrombosis) Current Visit: No Status: Acute Plan to address problem: INR supratherapeutic at this time, repeat inr, serial physical exam to monitor for mucosal/soft tissue petechiae. (5) Hypertension Current Visit: No Status: Chronic Qualifiers: Hypertension type: essential hypertension Qualified Code(s): I10 - Essential (primary) hypertension Plan to address problem: monitor bp q shift, continue medical management, (6) DVT prophylaxis Current Visit: Yes Status: Acute Plan to address problem: SCD to BLE while in bed.
[2018-12-01] MEDS ORDERED: ZOFRAN IV PRN (17:06)
[2018-12-01] MEDS ORDERED: PROVENTIL IH PRN (17:06)
[2018-12-01] MEDS ORDERED: SODIUM CHLORIDE FLUSH SYRINGE 10 ML IV PRN (17:06)
--- NOTE | 2018-12-01 17:25 | Event Note ---
Date: 12/01/18 Addendum to initial ER visit from 11/30/18: This pt presented for femoral PC placement today, to allow her RUE AVG to rest. The u/s performed yesterday appears to show rosa-graft hematoma from an infiltration with HD access canulation. Pt takes coumadin due to 'Blood clots in my chest', and to help with HD access patency. Her pre-op INR was ~4.43, and she presented coughing up blood tinged sputum. The PC placement was canceled due to the risk of bleeding, and the Hospitalist was contacted. The pt was sent to the ER, where she will be eval'd and admitted. Pt to get Vit K by ER physician. Will re-eval tomorrow, but will plan on PC insertion tomorrow. ------- Consult Note Patient Name: HAMMAD GREENWOOD Date of : 70 Patient Status: Emergency Emergency Provider: DAVID FINK Date: 11/30/18 17:51 Initialization Date: 11/30/18 17:51 History of Present Illness - Reason for Consult Consult date: 11/30/18 Malfunctioning AVG RUE Requesting physician: DAVID FINK - History of Present Illness This pt is a 48 yo AAF with ESRD on HD. She is s/p a creation RUE upper arm AVG (Procol 6mm) 09/17/18. She recently had a femoral PC removed and the AVG used successfully x1wk. She initially used 17gauge needles without issue. Today they increased to 16 gauge needles and within 15min of initation of HD, her arm swelling increased and arm and hand "turned blue". HD stopped and the pt was sent to [facility] ER. A vascular surgery consult has been requested to further evaluate. Past History Past Medical History: dialysis, ESRD, hypertension, (Review of Previous Medical records:(she's had multiple Perma-Caths at least 2 on her left chest and 2 on her right chest as well as previous catheters in her right leg, she's been told that her upper body central venous access is "clotted", she takes Coumadin due to these clots, she goes to the dialysis access center on [facility] every 3 months to have her access treated, she's had an AV fistula on the right upper extremity which was subsequently elevated, she had an AV fistula on the left upper extremity which did not function and was subsequently converted to an AV graft last year as detailed above. She's had a previous peritoneal catheter which was subsequently removed as it eroded through the skin. She was told in the past that she could return to PD if needed but chose not to.) Past Surgical History: Other (HD access LUE x2, LLE x1, RUE x1 , Multiple fistulagrams with intervention, partial parathyroidectomy) Social history: denies: smoking Family history: cancer, hypertension Medications and Allergies Allergies Allergy/AdvReac Type Severity Reaction Status Date / Time No Known Allergies Allergy Verified 09/10/18 08:28 Home Medications Medication Instructions Recorded Confirmed Last Taken Type Sevelamer Carbonate [Renvela] 800 mg PO TIDWM #90 tablet 07/10/14 11/04/18 11/03/18 Rx Calcitriol [Rocaltrol] 4 tab PO QDAY 09/29/16 11/04/18 11/03/18 History Warfarin [Coumadin] 7.5 mg PO Q48HR 09/29/16 11/04/18 11/03/18 History Calcium Acetate 667 mg PO AC 08/20/18 11/04/18 11/03/18 History amLODIPine [Norvasc] 10 mg PO QDAY #30 tablet 08/24/18 11/04/18 11/04/18 Rx Warfarin [Coumadin] 10 mg PO Q48H 09/10/18 11/04/18 11/02/18 History cloNIDine-TTS PATCH [Catapres-Tts 1 patch TRANSDERMA QWEEK 09/10/18 11/04/18 10/31/18 History Patch] Losartan Potassium 100 mg PO DAILY 09/17/18 11/04/18 11/04/18 History Epoetin Frank [Epogen] 20,000 unit SQ 2XW 10/04/18 11/04/18 10/27/18 History Review of Systems All systems: negative Exam - Constitutional Vitals: Temp Pulse Resp BP Pulse Ox 97.6 F 77 20 179/100 98 11/30/18 12:10 11/30/18 12:10 11/30/18 12:10 11/30/18 12:10 11/30/18 12:10 General appearance: Present: no acute distress - EENT Eyes: Present: EOM intact ENT: hearing intact - Neck Neck: Present: supple - Respiratory Respiratory effort: normal - Extremities Extremities: no ischemia, pulses intact (easily palpable radial pulse, and hand is warm), abnormal (easily palpable thrill RUE avg, mild-mod swelling of the up per arm and forearm (with pitting)) - Psychiatric Psychiatric: appropriate mood/affect, intact judgment & insight, cooperative - Neurologic Neurologic: no focal deficits Results - Labs CBC & Chem 7: 11/30/18 12:35 11/30/18 12:35 Labs: Abnormal lab results 11/30/18 11/30/18 Range/Units 12:35 12:35 Hgb 9.4 L (10.1-14.3) gm/dl Hct 29.9 L (30.3-42.9) % MCV 67 L (79-97) fl MCH 21 L (28-32) pg RDW 20.7 H (13.2-15.2) % Seg Neuts % (Manual) 73.0 H (40.0-70.0) % Lymphocytes # (Manual) 1.0 L (1.2-5.4) K/mm3 Sodium 136 L (137-145) mmol/L Chloride 90.4 L (98-107) mmol/L BUN 76 H (7-17) mg/dL Creatinine 13.8 H (0.7-1.2) mg/dL Calcium 6.0 L (8.4-10.2) mg/dL ALT 6 L (7-56) units/L Assessment and Plan This pt presents with acute exacerabation of pre-existing RUE swelling following initiation of HD today using larger access needles (16. Possible infiltration of the access. U/s ordered. She will need a femoral permacath placed to allow the AVG to rest prior to re- attempting to access the graft. Discussed with the ER MD. He spoke to nephrology who recommended admission. The pt refused, and . The pt was told to contact our office 1st thing in the am to schedule PC placement in the label machine operator at [facility] tomorrow afternoon. She understands to be NPO after mn (except meds). - Patient Problems (1) AV graft malfunction Current Visit: No Status: Acute (2) ESRD (end stage renal disease) on dialysis Current Visit: No Status: Chronic (3) Hypertension Current Visit: No Status: Chronic Qualifiers: Hypertension type: essential hypertension Qualified Code(s): I10 - Essential (primary) hypertension
[2018-12-01 17:52] LABS: Hematocrit 30.9 % (30.3-42.9); Hemoglobin 9.6 gm/dl (10.1-14.3); Mean Corpuscular HGB Conc 31 % (30-34); Red Blood Count 4.61 M/mm3 (3.65-5.03)
--- NOTE | 2018-12-01 17:53 | XRay Report ---
PROCEDURE: XR CHEST 1V AP TECHNIQUE: Chest single AP HISTORY: hx of coughing up blood COMPARISONS: FINDINGS: Cardiac silhouette is prominent in size. There is pulmonary vascular congestion. No pleural effusion identified. No confluent infiltrates are seen. IMPRESSION: . Pulmonary vascular congestion may reflect CHF or fluid overload. This document is electronically signed by Wesley Lawler MD., December 01 2018 05:51:25 PM ET
[2018-12-01 17:57] LABS: Mean Corpuscular Volume 67 fl (79-97); Platelet Count 270 K/mm3 (140-440); Red Cell Distribution Width 21.2 % (13.2-15.2)
[2018-12-01 18:05] LABS: Albumin 4.3 g/dL (3.9-5); Calcium 6.2 mg/dL (8.4-10.2)
[2018-12-01 19:22] LABS: Basophils % (Manual) 0 % (0.0-1.8); Total Cells Counted 100
[2018-12-01 19:23] LABS: Anisocytosis 2+; Platelet Estimate Consistent w Auto
[2018-12-01 19:24] LABS: Hypochromasia 1+; Ovalocytes Few; Schistocytes 1+; Tear Drop Cells Rare
[2018-12-01] MEDS ORDERED: CATAPRES-TTS PATCH TD SCH (22:00)
[2018-12-01] MEDS: TYLENOL PO PRN (22:28)
[2018-12-01] MEDS: SODIUM CHLORIDE FLUSH SYRINGE 10 ML IV SCH (23:47)
[2018-12-02 06:20] LABS: INR 1.87 (0.87-1.13)
[2018-12-02] MEDS: RENVELA PO SCH ×3 (07:52→16:51)
[2018-12-02] MEDS: PHOSLO PO SCH ×3 (07:52→16:20)
[2018-12-02] MEDS: COZAAR PO SCH (09:08)
[2018-12-02] MEDS: NORVASC PO SCH (09:09)
[2018-12-02] MEDS: TYLENOL PO PRN (09:14)
[2018-12-02] MEDS ORDERED: NON-FORMULARY (Losartan Potassium [Losartan Potassium] 100 MG) PO SCH (10:00)
[2018-12-02] MEDS ORDERED: ANCEF/STERILE WATER 2 GM/20 ML 2 GM/20 ML SYRINGE IV ONE (10:56)
[2018-12-02] MEDS ORDERED: HEPARIN 10,000 UNITS/10 ML ONE (10:56)
[2018-12-02] MEDS ORDERED: NACL 0.9% 250ML 250 ML ONE (10:56)
[2018-12-02] MEDS ORDERED: HEPARIN/NS 5000 UNIT/500ML(CATH LAB) 1,000 ML IR ONE (10:56)
[2018-12-02] MEDS: SODIUM CHLORIDE FLUSH SYRINGE 10 ML IV SCH (11:29)
[2018-12-02] MEDS: VERSED ONE ×2 (11:31→12:10)
[2018-12-02] MEDS: SUBLIMAZE ONE ×2 (11:31→12:10)
[2018-12-02] MEDS: XYLOCAINE 1%/ EPI 1:100,000 INFILTRATI ONE ×3 (11:32→12:22)
[2018-12-02] MEDS ORDERED: HEPARIN/NS 5000 UNIT/500ML(CATH LAB) 500 ML IR ONE (12:17)
[2018-12-02] MEDS ORDERED: SUBLIMAZE ONE (12:18)
[2018-12-02] MEDS ORDERED: XYLOCAINE 2% INFILTRATI ONE (12:26)
[2018-12-02] MEDS ORDERED: NACL 0.9% 100 ML IV PRN (12:37)
--- NOTE | 2018-12-02 12:41 | Consultation ---
History of Present Illness - Reason for Consult end stage renal disease - History of Present Illness Chief complaint is end stage renal disease requiring dialysis 48-year-old lady medical history significant for hypertension, end-stage renal disease on dialysis for several years on home hemodialysis was being seen in Center at [facility] with the right arm AV graft . The AV graft was accessed on Thursday the had been using 17-gauge needles and advanced to 16-gauge needle however she developed infiltration and worsening swelling in the right upper extremity she reports some swelling in the past in that arm as well since the graft was placed. She does complain of color changes in that hand but denies any change in sensation in that hand. She has not been elevating the arm. She was seen in the emergency room on Thursday and was offered admission but refused and was discharged home with medical advice he presented at the surgeon's office for tunneled catheter Placement yesterday and had a supratherapeutic INR with some hemoptysis who was admitted for correction of INR. She denies any nausea vomiting abdominal pain denies any bleeding from any orifice, but complains of shortness of breath Past History Past Medical History: ESRD, hypertension Past Surgical History: Other (Tubal ligation, AV Graft) Social history: single. denies: smoking, alcohol abuse, prescription drug abuse Family history: diabetes, hypertension Medications and Allergies Allergies Allergy/AdvReac Type Severity Reaction Status Date / Time No Known Allergies Allergy Verified 09/10/18 08:28 Home Medications Medication Instructions Recorded Confirmed Last Taken Type Sevelamer Carbonate [Renvela] 800 mg PO TIDWM #90 tablet 07/10/14 12/01/18 12/01/18 05:30 Rx Calcitriol [Rocaltrol] 4 tab PO QDAY 09/29/16 12/01/18 12/01/18 05:30 History Warfarin [Coumadin] 7.5 mg PO Q48HR 09/29/16 12/01/18 11/29/18 History 7.5mg Calcium Acetate 667 mg PO AC 08/20/18 12/01/18 12/01/18 05:30 History amLODIPine [Norvasc] 10 mg PO QDAY #30 tablet 08/24/18 12/01/18 11/29/18 Rx 10mg Warfarin [Coumadin] 10 mg PO Q48H 09/10/18 12/01/18 11/26/18 History cloNIDine-TTS PATCH [Catapres-Tts 1 patch TRANSDERMA QWEEK 09/10/18 12/01/18 11/22/18 History Patch] 0.3mg Losartan Potassium 100 mg PO DAILY 09/17/18 12/01/18 11/29/18 History 100mg Epoetin Frank [Epogen] 14,000 unit SQ 3XW 10/04/18 12/01/18 11/29/18 History 36001 Active Meds: Active Medications Acetaminophen (Tylenol) 650 mg PO Q4H PRN PRN Reason: Pain MILD(1-3)/Fever >100.5/CANTOR Last Admin: 12/02/18 09:14 Dose: 650 mg Documented by: Albuterol (Proventil) 2.5 mg IH Q4HRT PRN PRN Reason: Shortness Of Breath Amlodipine Besylate (Norvasc) 10 mg PO QDAY [facility] Last Admin: 12/02/18 09:09 Dose: 10 mg Documented by: Calcitriol (Rocaltrol) 2 mcg PO QDAY [facility] Calcium Acetate (Phoslo) 667 mg PO AC [facility] Last Admin: 12/02/18 11:30 Dose: Not Given Documented by: Clonidine HCl (Catapres-Tts Patch) 0.3 mg TD We [facility] Last Admin: 12/01/18 23:46 Dose: 0.3 mg Documented by: Sodium Chloride (Nacl 0.9% 500 Ml) 500 mls @ 50 mls/hr IV DIRECT HARDEEP Sodium Chloride (Nacl 0.9%) 100 mls @ 999 mls/hr IV JORGE PRN PRN Reason: Hypotension Losartan Potassium (Cozaar) 100 mg PO QDAY [facility] Last Admin: 12/02/18 09:08 Dose: 100 mg Documented by: Ondansetron HCl (Zofran) 4 mg IV Q8H PRN PRN Reason: Nausea And Vomiting Sevelamer Carbonate (Renvela) 800 mg PO TIDWM [facility] Last Admin: 12/02/18 11:30 Dose: Not Given Documented by: Sodium Chloride (Sodium Chloride Flush Syringe 10 Ml) 10 ml IV BID [facility] Last Admin: 12/02/18 11:29 Dose: Not Given Documented by: Sodium Chloride (Sodium Chloride Flush Syringe 10 Ml) 10 ml IV PRN PRN PRN Reason: LINE FLUSH Review of Systems Constitutional: weight gain, anorexia, fatigue Cardiovascular: orthopnea, edema, dyspnea on exertion, paroxysmal nocturnal dyspnea, no chest pain Respiratory: shortness of breath, dyspnea on exertion, no cough, no cough with sputum Gastrointestinal: no abdominal pain, no nausea Genitourinary Female: no dyspareunia, no dysmenorrhea Musculoskeletal: neck stiffness, other (right arm swelling) Integumentary: darkening of skin Neurological: no head injury, no transient paralysis, no numbness, no tingling Psychiatric: anxiety, no memory loss Endocrine: no cold intolerance, no heat intolerance Hematologic/Lymphatic: easy bleeding, no easy bruising Allergic/Immunologic: no persistent infections Exam - Vital Signs Vital signs: Vital Signs Resp 18 12/01/18 14:29 - General Appearance General appearance: well-developed, well-nourished EENT: ATNC, PERRL Neck: Present: neck supple Respiratory: Rales, Increased Expir. Phase Heart: regular, normal heart rate, S1S2, other (right arm AV graft with thrill and bruit, left arm AV graft occluded, left leg AV graft occluded) Gastrointestinal: Present: normal, normoactive bowel sounds Integumentary: no rash, warm and dry Neurologic: alert and oriented x3, CN 3-12 intact Musculoskeletal: Present: deferred, other (swelling of the entire right arm pulses felt, no change in sensation) Psychiatric: mood/affect appropriate Results - Lab Results 12/01/18 17:13 12/01/18 17:13 Most recent lab results Calcium 6.2 mg/dL (8.4-10.2) L 12/01/18 17:13 Assessment and Plan - Patient Problems (1) ESRD (end stage renal disease) on dialysis Current Visit: Yes Status: Acute Plan to address problem: End-stage renal disease on dialysis ACCESS : Right AV graft with swelling with thrill and bruit, the entire limb is swollen good pulses Appreciate vascular surgery for assistance with tunneled catheter Placement today We'll proceed with dialysis afterwards (2) Pulmonary edema Current Visit: Yes Status: Acute Qualifiers: Chronicity: acute Qualified Code(s): J81.0 - Acute pulmonary edema Plan to address problem: Acute pulmonary edema Chest x-ray with acute pulmonary edema We'll proceed with hemodialysis (3) Supratherapeutic INR Current Visit: Yes Status: Acute Plan to address problem: SuPRAtherapeutic INR was on Coumadin 7.5 mg daily received vitamin K We'll likely need Coumadin dose decreased (4) AV graft malfunction Current Visit: No Status: Acute Qualifiers: Encounter type: initial encounter Qualified Code(s): T82.590A - Other mechanical complication of surgically created arteriovenous fistula, initial encounter Plan to address problem: AV graft MALfunction swelling of the entire right arm I reviewed hemodialysis ultrasound concern for stenosis in the graft Given swelling of the entire arm recommended ELEVATION of the arm Vascular surgery is following discussed with them Appreciate vascular surgery assistance (5) Anemia Current Visit: No Status: Chronic Qualifiers: Other causes of anemia: chronic disease, kidney Qualified Code(s): N18.9 - Chronic kidney disease, unspecified Plan to address problem: Mild anemia that chronic kidney disease hemoglobin is 9.6 g/DL We'll give 10,000 units of Epogen (6) Hypertension Current Visit: No Status: Chronic Qualifiers: Hypertension type: essential hypertension Qualified Code(s): I10 - Essential (primary) hypertension Plan to address problem: Hypertension UNcontrolled We'll initiate dialysis to optimize volume status ENSURE medications (7) Metabolic acidosis with increased anion gap and accumulation of organic acids Current Visit: Yes Status: Acute Plan to address problem: Metabolic acidosis in the setting of renal failure We'll initiate dialysis
--- NOTE | 2018-12-02 12:57 | Post Operative Note ---
Pre-op diagnosis: mlalfuction avg Post-op diagnosis: same Findings: right CIV thrombosed, pc in IVC via left CFV Procedure: insertion of permacath,left CFV, venogram bilaterla lower extremities, duplex guided cannulation Anesthesia: other (mod sedation) Surgeon: BESSY COTTRELL Estimated blood loss: minimal Pathology: none Condition: stable
[2018-12-02] MEDS: ROCALTROL PO SCH (15:03)
[2018-12-03] MEDS ORDERED: PERCOCET 5/325 PO PRN (01:34)
[2018-12-03] MEDS: SODIUM CHLORIDE FLUSH SYRINGE 10 ML IV SCH ×2 (01:50→10:33)
--- NOTE | 2018-12-03 07:29 | Progress Note ---
Assessment and Plan 1) ESRD (end stage renal disease) on dialysis Current Visit: Yes Status: Acute Plan to address problem: Continue dialysis, monitor uop q shift, strict I/O, Renal diet, avoid nephrotoxic agents, bmp, (2) AV graft malfunction Current Visit: Yes Status: Acute Qualifiers: Encounter type: initial encounter Qualified Code(s): T82.590A - Other mechanical complication of surgically created arteriovenous fistula, initial e ncounter Plan to address problem: Vascular surgery consulted for permacath placement. Permacath placed (3) Supratherapeutic INR Current Visit: Yes Status: Acute Plan to address problem: Hold coumadin, serial INR, Vitamin K. (4) History of DVT (deep vein thrombosis) Current Visit: No Status: Acute Plan to address problem: INR supratherapeutic at this time, repeat inr, serial physical exam to monitor for mucosal/soft tissue petechiae. (5) Hypertension Current Visit: No Status: Chronic Qualifiers: Hypertension type: essential hypertension Qualified Code(s): I10 - Essential (primary) hypertension Plan to address problem: monitor bp q shift, continue medical management, (6) DVT prophylaxis Current Visit: Yes Status: Acute Plan to address problem: SCD to BLE while in bed. Subjective Date of service: 12/02/18 Principal diagnosis: AVG malfunction Interval history: Had vascath today Objective - Constitutional Vitals: Vital Signs - 12hr 12/02/18 12/02/18 12/02/18 19:43 20:01 22:00 Temperature 98.9 F Pulse Rate 103 H Respiratory 20 20 Rate Blood Pressure 159/87 O2 Sat by Pulse 100 100 Oximetry 12/03/18 12/03/18 01:40 04:40 Temperature 98.9 F Pulse Rate 86 Respiratory 20 20 Rate Blood Pressure 142/69 O2 Sat by Pulse 96 Oximetry General appearance: Present: no acute distress, well-nourished - EENT Eyes: PERRL, EOM intact ENT: hearing intact, clear oral mucosa Ears: bilateral: normal - Neck Neck: supple, normal ROM - Respiratory Respiratory effort: normal Respiratory: bilateral: CTA - Breasts Breasts: normal - Cardiovascular Rhythm: regular Heart Sounds: Present: S1 & S2. Absent: gallop, rub Extremities: pulses intact, No edema, normal color, Full ROM - Gastrointestinal General gastrointestinal: Present: soft, non-tender, non-distended, normal bowel sounds - Genitourinary Female genitourinary: normal - Integumentary Integumentary: clear, warm, dry - Musculoskeletal Musculoskeletal: 1, strength equal bilaterally - Neurologic Neurologic: moves all extremities - Psychiatric Psychiatric: memory intact, appropriate mood/affect, intact judgment & insight - Labs CBC & Chem 7: 12/01/18 17:13 12/01/18 17:13
[2018-12-03] MEDS: RENVELA PO SCH ×3 (08:33→17:19)
[2018-12-03] MEDS: PHOSLO PO SCH ×3 (08:33→17:19)
[2018-12-03] MEDS: NORVASC PO SCH (10:33)
[2018-12-03] MEDS: ROCALTROL PO SCH (10:33)
[2018-12-03] MEDS: COZAAR PO SCH (10:34)
--- NOTE | 2018-12-03 17:37 | Progress Note ---
Assessment and Plan Assessment: * End stage renal disease * Malfunctioning AVG * Right arm swelling likely secondary to central stenosis * Supratherapeutic INR * Anemia secondary to ESRD * Secondary hyperparathyroidism Plan: * Continue hemodialysis via left femoral permcath - per [facility]HD RN, patient has been educated re: catheter care * alf plan re: AVG discussed with Dr. Phan - rest AVG for a few weeks, attempt to salvage current AVG * Epogen TIW prn * Renal diet * Binders with meals * Stable for d/c from a renal standpoint Subjective Date of service: 12/03/18 Principal diagnosis: AVG malfunction Interval history: Patient complains of right arm swelling Objective - Vital Signs Vital signs: Vital Signs - 12hr 12/03/18 12/03/18 12/03/18 08:33 10:33 10:34 Temperature Pulse Rate Respiratory Rate Blood Pressure 132/82 132/82 O2 Sat by Pulse 98 Oximetry 12/03/18 12:13 Temperature 97.5 F L Pulse Rate 85 Respiratory 18 Rate Blood Pressure 138/90 O2 Sat by Pulse 99 Oximetry - General Appearance General appearance: well-developed, well-nourished EENT: ATNC Respiratory: Present: Clear to Ascultation Cardiology: regular, S1S2 Gastrointestinal: normal, no tenderness, no distended Integumentary: no rash, warm and dry Neurologic: no focal deficit Musculoskeletal: other (right arm swelling) Psychiatric: cooperative - Lab 12/01/18 17:13 12/01/18 17:13 Most recent lab results Calcium 6.2 mg/dL (8.4-10.2) L 12/01/18 17:13 Medications & Allergies - Medications Allergies/Adverse Reactions: Allergies No Known Allergies Allergy (Verified 09/10/18 08:28) Home Medications: Home Medications Medication Instructions Recorded Confirmed Last Taken Type Warfarin [Coumadin] 7.5 mg PO Q48HR 09/29/16 12/01/18 11/29/18 History 7.5mg Warfarin [Coumadin] 10 mg PO Q48H 09/10/18 12/01/18 11/26/18 History cloNIDine-TTS PATCH [Catapres-Tts 1 patch TRANSDERMA QWEEK 09/10/18 12/01/18 11/22/18 History Patch] 0.3mg Losartan Potassium 100 mg PO DAILY 09/17/18 12/01/1819 History 100mg Epoetin Frank [Epogen] 14,000 unit SQ 3XW 10/04/18 12/01/18 11/29/18 History 18960 Calcitriol [Rocaltrol] 4 tab PO QDAY #30 capsule 12/03/18 Unknown Rx Calcium Acetate 667 mg PO AC #90 capsule 12/03/18 Unknown Rx Sevelamer Carbonate [Renvela] 800 mg PO TIDWM #90 tablet 12/03/18 Unknown Rx amLODIPine [Norvasc] 10 mg PO QDAY #30 tablet 12/03/18 Unknown Rx oxyCODONE /ACETAMINOPHEN [Percocet 1 tab PO Q4H PRN #12 tablet 12/03/18 Unknown Rx 5/325 mg] Active Medications: Generic Name Dose Route Start Last Admin Trade Name Freq PRN Reason Stop Dose Admin Acetaminophen 650 mg 12/01/18 17:06 12/02/18 09:14 Tylenol PO 650 mg Q4H PRN Administration Pain MILD(1-3)/Fever >100.5/CANTOR Albuterol 2.5 mg 12/01/18 17:06 Proventil IH Q4HRT PRN Shortness Of Breath Amlodipine Besylate 10 mg 12/02/18 10:00 12/03/18 10:33 Norvasc PO 10 mg QDAY HARDEEP Administration Calcitriol 2 mcg 12/02/18 14:00 12/03/18 10:33 Rocaltrol PO 2 mcg QDAY HARDEEP Administration Calcium Acetate 667 mg 12/02/18 07:30 12/03/18 17:19 Phoslo PO 667 mg AC HARDEEP Administration Clonidine HCl 0.3 mg 12/01/18 22:00 12/01/18 23:46 Catapres-Tts Patch TD 0.3 mg We HARDEEP Administration Sodium Chloride 500 mls @ 50 mls/hr 12/01/18 14:00 Nacl 0.9% 500 Ml IV DIRECT HARDEEP Sodium Chloride 100 mls @ 999 mls/hr 12/02/18 12:37 Nacl 0.9% IV JORGE PRN Hypotension Losartan Potassium 100 mg 12/02/18 10:00 12/03/18 10:34 Cozaar PO 100 mg QDAY HARDEEP Administration Ondansetron HCl 4 mg 12/01/18 17:06 Zofran IV Q8H PRN Nausea And Vomiting Oxycodone/Acetaminophen 1 tab 12/03/18 01:34 12/03/18 01:40 Percocet 5/325 PO 1 tab Q4H PRN Administration Pain, Moderate (4-6) Sevelamer Carbonate 800 mg 12/02/18 08:00 12/03/18 17:19 Renvela PO 800 mg TIDWM HARDEEP Administration Sodium Chloride 10 ml 12/01/18 22:00 12/03/18 10:33 Sodium Chloride Flush Syringe 10 Ml IV 10 ml BID HARDEEP Administration Sodium Chloride 10 ml 12/01/18 17:06 Sodium Chloride Flush Syringe 10 Ml IV PRN PRN LINE FLUSH
[2018-12-03 18:52] VITALS: BP 123/80
--- NOTE | 2018-12-03 19:10 | Discharge Summary ---
Providers - Providers Date of Admission: 12/01/18 17:06 Date of discharge: 12/03/18 Attending physician: HALEY CROFT 12/01/18 16:04 Consult to Physician [CONS] Urgent Comment: Consulting Provider: KRYSTYNA ARRIAGA Physician Instructions: Reason For Exam: perma cath Consult to Physician [CONS] Urgent Comment: Consulting Provider: WAI RUTLEDGE Physician Instructions: Reason For Exam: esrd Primary care physician: JOSE GUZMAN Hospitalization Condition: Good Procedures: Pre-op diagnosis: mlalfuction avg Post-op diagnosis: same Findings: right CIV thrombosed, pc in IVC via left CFV Procedure: insertion of permacath,left CFV, venogram bilaterla lower extremities, duplex guided cannulation Hospital course: 1) ESRD (end stage renal disease) on dialysis Current Visit: Yes Status: Acute Plan to address problem: Continue dialysis, monitor uop q shift, strict I/O, Renal diet, avoid nephrotoxic agents, bmp, (2) AV graft malfunction Current Visit: Yes Status: Acute Qualifiers: Encounter type: initial encounter Qualified Code(s): T82.590A - Other mechanical complication of surgically created arteriovenous fistula, initial encounter Plan to address problem: Vascular surgery consulted for permacath placement. Femoral Permacath placed (3) Supratherapeutic INR Current Visit: Yes Status: Acute Plan to address problem: Hold coumadin, serial INR, Vitamin K. (4) History of DVT (deep vein thrombosis) Current Visit: No Status: Acute Plan to address problem: INR supratherapeutic at this time, repeat inr, serial physical exam to monitor for mucosal/soft tissue petechiae. (5) Hypertension Current Visit: No Status: Chronic Qualifiers: Hypertension type: essential hypertension Qualified Code(s): I10 - Essential (primary) hypertension Plan to address problem: monitor bp q shift, continue medical management, Disposition: DC-01 TO HOME OR SELFCARE Core Measure Documentation - Palliative Care Palliative Care/ Comfort Measures: Not Applicable - Core Measures Any of the following diagnoses?: none Exam - Constitutional Vitals: Temp Pulse Resp BP Pulse Ox 98.0 F 78 20 123/80 100 12/03/18 16:28 12/03/18 16:28 12/03/18 16:28 12/03/18 16:28 12/03/18 16:28 General appearance: Present: no acute distress, well-nourished - EENT Eyes: Present: PERRL ENT: hearing intact, clear oral mucosa - Neck Neck: Present: supple, normal ROM - Respiratory Respiratory effort: normal Respiratory: bilateral: CTA - Cardiovascular Heart rate: 78 Rhythm: regular Heart Sounds: Present: S1 & S2. Absent: rub, click - Extremities Extremities: no ischemia, pulses intact, pulses symmetrical, No edema Peripheral Pulses: within normal limits - Abdominal General gastrointestinal: Present: soft, non-tender, non-distended, normal bowel sounds Female genitourinary: Present: normal - Rectal Rectal Exam: deferred - Integumentary Integumentary: Present: clear, warm, dry - Musculoskeletal Musculoskeletal: gait normal, strength equal bilaterally - Psychiatric Psychiatric: appropriate mood/affect, intact judgment & insight - Neurologic Neurologic: CNII-XII intact, moves all extremities Plan Activity: no restrictions Diet: renal Follow up with: JOSE GUZMAN MD [Primary Care Provider] - 3-[address] MD [Staff Physician] - 7 Days
--- NOTE | 2019-01-13 23:17 | Operative Report ---
PREOPERATIVE DIAGNOSIS: Malfunction of AV graft, occlusion of central venous system upper extremities. POSTOPERATIVE DIAGNOSIS: Malfunction of AV graft, occlusion of central venous system upper extremities. OPERATIVE PROCEDURE: 1. Insertion of Perm-A-Cath, left common femoral vein. 2. Venogram of bilateral lower extremities and inferior vena cava. 3. Duplex guided cannulation, left and right common femoral veins. SURGEON: Amauri Phan MD ANESTHESIA: Moderate sedation. ESTIMATED BLOOD LOSS: Minimal. COMPLICATIONS: None. INSTRUMENT COUNTS: Correct. SPECIMENS: None. SURGICAL FINDINGS: Chronically occluded right common iliac vein, necessitating placement of Perm-A-Cath in the left common femoral and iliac system. SURGICAL DETAILS: With the patient in supine position, after adequate levels of moderate sedation was obtained, both groins were prepped and draped using standard sterile technique. Duplex guidance was used to identify the right common femoral vein and the skin overlying that vessel was anesthetized. Using ultrasound imaging and real time capture of the pictures, the micropuncture needle was observed to penetrate the anterior wall of the common femoral vein. Microwire was advanced proximally, but would not pass all the way to the vena cava. A small irrigation sheath was placed. Contrast was injected, which showed that the common femoral vein was patent and the external iliac vein was patent, but at the level of the internal iliac vein, the common iliac vein appeared to be occluded and only collateral flow via pelvic collateral, lumbar collateral and gonadal collateral did the contrast enter the vena cava. There was a relatively large channel that looked promising, but multiple attempts using different catheters through a 5-Telugu introducer after heparinization would not allow any guidewire to pass into the central circulation. I then abandoned the attempted placement of a catheter in the right groin. Attention was then turned to the left groin where again I identified the common femoral vein to be patent, and through anesthetized skin, advanced a needle directly into the vein. Microwire was advanced and a MicroSheath was advanced. Contrast showed the left iliac system to be widely patent as was in the inferior vena cava. I then proceeded to pass the guidewire into the suprarenal vena cava. A Perm-A-Cath was then selected and an exit site for the tunnel was created and the tunneling device was then used to withdraw the Perm-A-Cath into the femoral incision. Note, a SafeSheath introducer was placed over the guidewire and the catheter was advanced into the inferior vena cava in the retrohepatic position. The guidewire was removed. The catheters were aspirated, flushed, and primed using 5000 units of heparin per limb. Sterile caps were applied. The femoral incision was closed using 3-0 Vicryl subcutaneous, 4-0 Monocryl subcuticular and sealed with Dermabond. The catheter exit site was anchored to the skin and a Biopatch was applied. Sterile caps had been already applied. The patient was then returned to the supine position and all incisions were covered with sterile Tegaderm. The patient then returned to the recovery area in stable condition having tolerated the procedure well. Catheter is ready for use. JOB# [id number] LORETO/REYNALDO
== END 2018-12-03 21:10 | disposition home or self-care (01) | DRG 314 ==
LOC: ED 13:23 → EDSTATUS 15:51 → 3A 17:06
PROVIDERS: ADMIT Internal Medicine; ATTEND Internal Medicine
PROC: 0JHP3XZ Insertion of Tunneled Vascular Access Device into Left Lower Leg Subcutaneous Tissue and Fascia, Percutaneous Approach (ICD-10-PCS; principal; 2018-12-02)
PROC: 06H033Z Insertion of Infusion Device into Inferior Vena Cava, Percutaneous Approach (ICD-10-PCS; 2018-12-02)
PROC: B549ZZA Ultrasonography of Inferior Vena Cava, Guidance (ICD-10-PCS; 2018-12-02)
PROC: B51D1ZZ Fluoroscopy of Bilateral Lower Extremity Veins using Low Osmolar Contrast (ICD-10-PCS; 2018-12-02)
PROC: 5A1D70Z Performance of Urinary Filtration, Intermittent, Less than 6 Hours Per Day (ICD-10-PCS; 2018-12-02)
DX: T82.590A Other mechanical complication of surgically created arteriovenous fistula, initial encounter (principal); N18.6 End stage renal disease; J81.0 Acute pulmonary edema; E87.2 Acidosis; R04.2 Hemoptysis; N25.81 Secondary hyperparathyroidism of renal origin; I82.421 Acute embolism and thrombosis of right iliac vein; I12.0 Hypertensive chronic kidney disease with stage 5 chronic kidney disease or end stage renal disease; E05.90 Thyrotoxicosis, unspecified without thyrotoxic crisis or storm; D63.1 Anemia in chronic kidney disease; Y83.2 Surgical operation with anastomosis, bypass or graft as the cause of abnormal reaction of the patient, or of later complication, without mention of misadventure at the time of the procedure; Y92.098 Other place in other non-institutional residence as the place of occurrence of the external cause; Z99.2 Dependence on renal dialysis; Z98.51 Tubal ligation status; Z83.3 Family history of diabetes mellitus; Z82.49 Family history of ischemic heart disease and other diseases of the circulatory system; Z79.01 Long term (current) use of anticoagulants; Z79.899 Other long term (current) drug therapy; Z86.718 Personal history of other venous thrombosis and embolism; Z80.9 Family history of malignant neoplasm, unspecified
CPT/HCPCS: 36415; 36558; 71045; 76937; 77001; 80053; 84132; 85007; 85025; 85610; 85730; 93005; 93010; 93990; 94760; G0378; C1769; J0360; J0690; J1644; J2250; J3010; J3430; J7050; Q9967

== ENCOUNTER 2018-12-15 12:52 | Day surgery (SDC) | payer MEDICARE ==
[2018-12-15 14:12] LABS: INR 1.1 (0.87-1.13)
[2018-12-15 14:13] LABS: Partial Thromboplastin Time 35.4 Sec. (24.2-36.6)
--- NOTE | 2018-12-15 16:00 | Short Stay Summary ---
Short Stay Documentation Date of service: 12/15/18 Narrative H&P: This pt is a 48yo AAF with ESRD on HD through a Left femoral permacath. Her catheter has been reportedly malfunctioning, and she has not been able to dialyze for 2 days. She presents today for a catheter exchange. - History Past Medical History: dialysis, ESRD, hypertension Past Surgical History: Other (partial parathyroidectomy, 2 LUE av access, 1 RUE av access, 1 LLE AV access, Multiple previous HD catheters, Multiple previous fistulagrams, She most recently had a L femoral PC placed and BLE venograms - this revealed a R iliac venous occlusion. She has a RUE AVG which is patent, but difficult to access due to swelling (long standing central venous occlusion). This was recently infiltrated with an INR ~8, she developed a perigraft hematoma and the femoral PC was placed to allow the access to rest.) Social history: no smoking, no alcohol abuse - Allergies and Medications Current Medications: Allergies No Known Allergies Allergy (Verified 09/10/18 08:28) Home Medications Medication Instructions Recorded Confirmed Last Taken Type Warfarin [Coumadin] 5 mg PO Q48HR 09/29/16 12/15/18 12/13/18 History Warfarin [Coumadin] 10 mg PO Q48H 09/10/18 12/15/18 12/14/18 History cloNIDine-TTS PATCH [Catapres-Tts 1 patch TRANSDERMA QWEEK 09/10/18 12/15/18 12/12/18 History Patch] Losartan Potassium 100 mg PO DAILY 09/17/18 12/15/18 12/14/18 History Epoetin Frank [Epogen] 14,000 unit SQ 3XW 10/04/18 12/15/18 12/13/18 History Calcitriol [Rocaltrol] 4 tab PO QDAY #30 capsule 12/03/18 12/15/18 12/14/18 Rx Calcium Acetate 667 mg PO AC #90 capsule 12/03/18 12/15/18 12/14/18 Rx Sevelamer Carbonate [Renvela] 800 mg PO TIDWM #90 tablet 12/03/18 12/15/18 12/14/18 Rx amLODIPine [Norvasc] 10 mg PO QDAY #30 tablet 12/03/18 12/15/18 12/14/18 Rx oxyCODONE /ACETAMINOPHEN [Percocet 1 tab PO Q4H PRN #12 tablet 12/03/18 12/15/18 12/12/18 Rx 5/325 mg] - Physical exam General appearance: no acute distress HEENT: Atraumatic, EOMI Lungs: Normal air movement Heart: Regular rate Gastrointestinal: normal Extremities: no ischemia (L femoral PC, RUE AVG (procol graft) with arm swelling.) Neurological: Other (no focal deficits appreciated) - Brief post op/procedure progress note Procedure: Operative Report Operative Report: Date of procedure: 12/15/2018 Pre-operative diagnosis: Malfunction of permacath , end-stage renal disease Post-operative diagnosis: Same Procedure name(s): Complete exchange of permacath left common femoral vein same venous access site, fluoroscopic supervision and interpretation Surgeon: Amauri Phan MD Deputy Prosecuting Attorney: None Anesthesia: Moderate sedation 44 minutes EBL: Minimal Specimen(s): Catheter discarded Complications: None Findings: New catheter repositioned to a more favorable site in the suprarenal inferior vena cava. Procedure: The patient in the supine position after adequate levels of moderate sedation was obtained the patient's left groin and leg were prepped and draped using standard sterile technique. The skin overlying the original insertion site in the groin was anesthetized and an ellipse of tissue was removed exposing the catheter catheter was then divided between clamps and a J-wire was advanced through the catheter and into the right atrium from below. A safe sheath introducer and dilator was advanced over the wire into the iliac vein after removing the old catheter. A 44 cm palindrome permacath was then inserted over the wire and advanced into the retrohepatic vena cava. Catheter was repositioned at least once a ensure the catheter tip was not in the hepatic veins. An exit site was selected inferior and lateral to the insertion site and was anesthetized. The tunneler was then advanced through a small stab incision into the groin incision. The new catheter was occluded with clamps attached to the tunneler and withdrawn inferiorly through the exit site. Redundant was excised and the extension set locking mechanism was placed followed by the extension set. The locking mechanism was activated and both limbs were aspirated and flushed and primed using heparin saline. For doing so we did inject a small amount of contrast to confirm appropriate positioning of the catheter tip. The insertion incision was then closed using a running vertical mattress alternating horizontal mattress suture of 2-0 nylon suture. The catheter was anchored to the skin inferiorly using nylon suture. A Biopatch was applied and sterile dressing was applied to all scissors. The remaining portion of the old catheter was removed by gentle downward traction. Patient was then returned to the supine position and then to the recovery area in stable condition having tolerated the procedure well. Catheter is ready for use - Hospital course Hospital course: See subsequent short stay form - Disposition Condition at discharge: Stable Disposition: DC-01 TO HOME OR SELFCARE Short Stay Discharge Plan Follow up with: AMAURI PHAN MD [Staff Physician] - 12/21/18 JOSE GUZMAN MD [Primary Care Provider] - 7 Days Prescriptions: oxyCODONE /ACETAMINOPHEN [Percocet 5/325 mg] 1 tab PO Q4H PRN #20 tablet PRN Reason: Pain, Moderate (4-6)
[2018-12-15] MEDS ORDERED: VERSED ONE (19:44)
[2018-12-15] MEDS ORDERED: ANCEF/STERILE WATER 2 GM/20 ML 2 GM/20 ML SYRINGE IV ONE (19:45)
[2018-12-15] MEDS ORDERED: NACL 0.9% 250ML 250 ML ONE (19:45)
[2018-12-15] MEDS ORDERED: HEPARIN/NS 5000 UNIT/500ML(CATH LAB) 500 ML IR ONE (19:45)
[2018-12-15] MEDS: XYLOCAINE 2% INFILTRATI ONE ×2 (20:13→20:42)
[2018-12-15] MEDS: SUBLIMAZE ONE ×2 (20:13→20:18)
[2018-12-15] MEDS: HEPARIN 10,000 UNITS/10 ML ONE ×6 (20:33→20:52)
[2018-12-15] MEDS ORDERED: XYLOCAINE 2% INFILTRATI ONE (20:56)
--- NOTE | 2018-12-15 21:18 | Short Stay Summary ---
Short Stay Documentation Date of service: 12/15/18 - History Past Medical History: dialysis, ESRD, hypertension Past Surgical History: Other (partial parathyroidectomy, 2 LUE av access, 1 RUE av access, 1 LLE AV access, Multiple previous HD catheters, Multiple previous fistulagrams, She most recently had a L femoral PC placed and BLE venograms - this revealed a R iliac venous occlusion. She has a RUE AVG which is patent, but difficult to access due to swelling (long standing central venous occlusion). This was recently infiltrated with an INR ~8, she developed a perigraft hematoma and the femoral PC was placed to allow the access to rest.) Social history: no smoking, no alcohol abuse - Allergies and Medications Current Medications: Allergies No Known Allergies Allergy (Verified 09/10/18 08:28) Home Medications Medication Instructions Recorded Confirmed Last Taken Type Warfarin [Coumadin] 5 mg PO Q48HR 09/29/16 12/15/18 12/13/18 History Warfarin [Coumadin] 10 mg PO Q48H 09/10/18 12/15/18 12/14/18 History cloNIDine-TTS PATCH [Catapres-Tts 1 patch TRANSDERMA QWEEK 09/10/18 12/15/18 12/12/18 History Patch] Losartan Potassium 100 mg PO DAILY 09/17/18 12/15/18 12/14/18 History Epoetin Frank [Epogen] 14,000 unit SQ 3XW 10/04/18 12/15/18 12/13/18 History Calcitriol [Rocaltrol] 4 tab PO QDAY #30 capsule 12/03/18 12/15/18 12/14/18 Rx Calcium Acetate 667 mg PO AC #90 capsule 12/03/18 12/15/18 12/14/18 Rx Sevelamer Carbonate [Renvela] 800 mg PO TIDWM #90 tablet 12/03/18 12/15/18 12/14/18 Rx amLODIPine [Norvasc] 10 mg PO QDAY #30 tablet 12/03/18 12/15/18 12/14/18 Rx oxyCODONE /ACETAMINOPHEN [Percocet 1 tab PO Q4H PRN #12 tablet 12/03/18 12/15/18 12/12/18 Rx 5/325 mg] - Physical exam Heart: Regular rate Extremities: no ischemia (L femoral PC, RUE AVG (procol graft) with arm swelling.) - Brief post op/procedure progress note Date of procedure: 12/15/18 Pre-op diagnosis: malfunctioning permacath end-stage renal disease Post-op diagnosis: same Procedure: Complete exchange of permacath via same venous access site left groin, fluoroscopic evaluation Anesthesia: other (moderate sedation:Starting time 2012 ending time 2056 total sedation time 44 minutes) Findings: Replacement permacath repositioned in the suprarenal inferior vena cava near the diaphragm. Surgeon: BESSY COTTRELL Estimated blood loss: minimal Pathology: none Condition: stable - Hospital course Hospital course: Unremarkable. Catheter ready for use - Disposition Condition at discharge: Stable Disposition: - TO HOME OR SELFCARE - Discharge Diagnoses (1) Hemodialysis catheter malfunction Status: Acute Qualifiers: Encounter type: initial encounter Qualified Code(s): T82.41XA - Breakdown (mechanical) of vascular dialysis catheter, initial encounter Short Stay Discharge Plan Activity: advance as tolerated Weight Bearing Status: Full Weight Bearing Diet: renal Wound: keep clean and dry Special Instructions: no heavy lifting Follow up with: JOSE GUZMAN MD [Primary Care Provider] - 7 Days BESSY COTTRELL MD [Staff Physician] - 12/21/18 Prescriptions: oxyCODONE /ACETAMINOPHEN [Percocet 5/325 mg] 1 tab PO Q4H PRN #20 tablet PRN Reason: Pain, Moderate (4-6)
--- NOTE | 2018-12-15 21:30 | Operative Report ---
Operative Report Operative Report: Date of procedure: 12/15/2018 Pre-operative diagnosis: Malfunction of permacath , end-stage renal disease Post-operative diagnosis: Same Procedure name(s): Complete exchange of permacath left common femoral vein same venous access site, fluoroscopic supervision and interpretation Surgeon: Amauri Phan MD Appraiser Real Estate: None Anesthesia: Moderate sedation 44 minutes EBL: Minimal Specimen(s): Catheter discarded Complications: None Findings: New catheter repositioned to a more favorable site in the suprarenal inferior vena cava. Procedure: The patient in the supine position after adequate levels of moderate sedation was obtained the patient's left groin and leg were prepped and draped using standard sterile technique. The skin overlying the original insertion site in the groin was anesthetized and an ellipse of tissue was removed exposing the catheter catheter was then divided between clamps and a J-wire was advanced through the catheter and into the right atrium from below. A safe sheath introducer and dilator was advanced over the wire into the iliac vein after removing the old catheter. A 44 cm palindrome permacath was then inserted over the wire and advanced into the retrohepatic vena cava. Catheter was repositioned at least once a ensure the catheter tip was not in the hepatic veins. An exit site was selected inferior and lateral to the insertion site and was anesthetized. The tunneler was then advanced through a small stab incision into the groin incision. The new catheter was occluded with clamps attached to the tunneler and withdrawn inferiorly through the exit site. Redundant was excised and the extension set locking mechanism was placed followed by the extension set. The locking mechanism was activated and both limbs were aspirated and flushed and primed using heparin saline. For doing so we did inject a small amount of contrast to confirm appropriate positioning of the catheter tip. The insertion incision was then closed using a running vertical mattress alternating horizontal mattress suture of 2-0 nylon suture. The catheter was anchored to the skin inferiorly using nylon suture. A Biopatch was applied and sterile dressing was applied to all scissors. The remaining portion of the old catheter was removed by gentle downward traction. Patient was then returned to the supine position and then to the recovery area in stable condition having tolerated the procedure well. Catheter is ready for use
[2018-12-15 21:48] VITALS: BP 147/92
== END 2018-12-15 22:48 | disposition home or self-care (01) ==
LOC: CATHLABREC 12:52
PROVIDERS: ATTEND Surgery Vascular Surgery
DX: T82.590A Other mechanical complication of surgically created arteriovenous fistula, initial encounter (principal); I12.0 Hypertensive chronic kidney disease with stage 5 chronic kidney disease or end stage renal disease; N18.6 End stage renal disease; F17.210 Nicotine dependence, cigarettes, uncomplicated; D64.9 Anemia, unspecified; H40.9 Unspecified glaucoma; E03.9 Hypothyroidism, unspecified; G40.909 Epilepsy, unspecified, not intractable, without status epilepticus; T82.7XXA Infection and inflammatory reaction due to other cardiac and vascular devices, implants and grafts, initial encounter; Z79.899 Other long term (current) drug therapy; Z98.891 History of uterine scar from previous surgery; Z98.890 Other specified postprocedural states; Z79.01 Long term (current) use of anticoagulants; Z86.718 Personal history of other venous thrombosis and embolism; Z72.89 Other problems related to lifestyle; Y83.8 Other surgical procedures as the cause of abnormal reaction of the patient, or of later complication, without mention of misadventure at the time of the procedure; Y92.89 Other specified places as the place of occurrence of the external cause
CPT/HCPCS: 36415; 36558; 77001; 84132; 85610; 85730; 99156; 99157; C1750; C1769; J0690; J1644; J2250; J3010; J7050; Q9967